=== PATIENT | female | born 1930 | race Caucasian/White ===

== ENCOUNTER 2017-05-25 10:37 | Inpatient (IN) | payer MEDICARE ==
[~2017-05-25] VITALS: Ht 160 cm; Wt 71.0 kg
--- OUTSIDE RECORDS SUMMARY | 2017-05-25 10:40 | XMS REPORT | Clinical Summary ---
Author Author [facility] Organization [facility] Address Unknown Phone Unavailable Care Team Providers Care Produce Sorter Name Role Phone Sommer Jesus MD PCP Allergies Active Allergy Reactions Severity Noted Date Comments Cephalexin 08/14/2015 Cramp,diarrhea Codeine Other (See Comments) 08/14/2015 nausea Iron Diarrhea High 05/24/2016 Intolerant of oral iron but tolerates IV ferrlecit Isosorbide Mononitrate Other (See Comments) 08/14/2015 Slow heart Penicillins Hives 08/14/2015 Sulfanilamide Hives 08/14/2015 Current Medications Prescription Sig. Disp. Refills Start End Date Status Date losartan (COZAAR) 100 MG Take 100 mg by mouth once 5 10/29/19 Active tablet daily. 16 SPIRIVA WITH HANDIHALER INHALE 1 CAPSULE VIA 3 09/03/19 Active 18 mcg per inhalation HANDIHALER ONCE DAILY AT 16 capsule THE SAME TIME EVERY DAY VITAMIN D2 50,000 unit Take 1 capsule by mouth 0 10/12/19 Active capsule every 30 (thirty) days. 16 ADVAIR DISKUS 250-50 INHALE 1 DOSE BY MOUTH 0 10/19/19 Active mcg/dose DISKUS TWICE DAILY. RINSE MOUTH 16 AFTER USE pantoprazole (PROTONIX) Take 40 mg by mouth daily 5 09/25/19 Active 40 MG EC tablet as needed. 16 atorvastatin (LIPITOR) 20 Take 1 tablet by mouth 11/06/19 Active MG tablet daily. 16 ascorbic acid, vitamin C, Take 500 mg by mouth Active (VITAMIN C) 500 MG tablet daily. diphenhydramine-acetamino Take 1 tablet by mouth Active phen (TYLENOL PM EXTRA nightly. STRENGTH) 25-500 mg tablet BD INSULIN SYRINGE USE DIRECTED 100 each 2 04/17/20 Active ULTRA-FINE 0.5 mL 31 17 gauge x 5/16 syringe metoprolol succinate XL TAKE 1 TABLET (50 MG 90 tablet 2 09/15/19 Active (TOPROL-XL) 50 mg 24 hr TOTAL) BY MOUTH ONCE 17 tablet DAILY. ONETOUCH ULTRA TEST strip Testing blood sugar twice 200 strip 0 Active test stripsIndications: daily 17 Diabetes mellitus with insulin therapy piroxicam (FELDENE) 10 MG Take 1 capsule (10 mg 30 capsule 11 12/23/19 Active capsuleIndications: total) by mouth daily. 17 18 Osteoarthritis of left glenohumeral joint insulin 70/30 NPH and Inject 5 Units under the 10 mL 12 03/27/19 Active regular human (HumuLIN skin 2 (two) times a day 18 70/30) 100 unit/mL before meals for 30 days. (70-30) injection amLODIPine (NORVASC) 5 MG Take 1 tablet (5 mg 30 tablet 11 10/24/19 10/28/19 Discontin tablet total) by mouth daily. 16 17 ued furosemide (LASIX) 40 MG Take 40 mg by mouth 2 2 09/06/19 03/28/19 Discontin tablet (two) times a day. 16 18 ued BD INSULIN SYRINGE See Admin Instructions. 2 09/11/19 06/19/19 Discontin ULTRA-FINE 0.5 mL 31 16 17 ued gauge x 5/16 syringe ONETOUCH ULTRA TEST strip TEST BLOOD SUGAR TWICE A 2 08/30/19 Discontin test strips DAY 16 17 ued diltiazem XR (DILACOR XR) Take 240 mg by mouth once 5 11/01/19 Discontin 240 MG 24 hr capsule daily. 16 18 ued metoprolol succinate XL Take 1 tablet (50 mg 90 tablet 2 12/24/19 Discontin (TOPROL-XL) 50 MG 24 hr total) by mouth once 16 17 ued tablet daily. HUMULIN 70/30 100 unit/mL Inject 35 Units under the 10 mL 3 04/07/19 05/30/19 Discontin (70-30) injection skin 2 (two) times a day. 17 17 ued clonIDINE (CATAPRES) 0.1 TAKE 1 TABLET BY MOUTH 30 tablet 3 04/16/19 08/09/19 Discontin MG tablet EVERY DAY 17 17 ued potassium chloride Take 20 mEq by mouth 03/28/19 Discontin (K-DUR) 20 MEQ CR tablet every morning. 18 ued HUMULIN 70/30 100 unit/mL INJECT 35 UNITS UNDER THE 10 mL 3 05/30/19 08/08/19 Discontin (70-30) injection SKIN 2 (TWO) TIMES A DAY. 17 17 ued BD INSULIN SYRINGE USE DIRECTED 100 each 2 06/19/19 06/22/19 Discontin ULTRA-FINE 0.5 mL 31 17 17 ued gauge x 5/16 syringe HUMULIN 70/30 100 unit/mL INJECT 35 UNITS UNDER THE 10 mL 3 08/08/19 10/14/19 Discontin (70-30) injection SKIN 2 (TWO) TIMES A DAY. 17 17 ued clonIDINE (CATAPRES) 0.1 TAKE 1 TABLET BY MOUTH 30 tablet 3 08/09/19 11/24/19 Discontin MG tablet EVERY DAY 17 17 ued ONETOUCH ULTRA TEST strip TEST BLOOD SUGAR TWICE A 200 strip 2 11/14/19 Discontin test strips DAY 17 17 ued HUMULIN 70/30 100 unit/mL INJECT 35 UNITS UNDER THE 10 mL 3 10/14/19 03/28/19 Discontin (70-30) injection SKIN 2 (TWO) TIMES A DAY. 17 18 ued amLODIPine (NORVASC) 5 mg TAKE 1 TABLET (5 MG 30 tablet 5 10/28/19 03/28/19 Discontin tablet TOTAL) BY MOUTH DAILY. 17 18 ued clonIDINE (CATAPRES) 0.1 TAKE 1 TABLET BY MOUTH 30 tablet 3 11/24/19 03/28/19 Discontin MG tablet EVERY DAY 17 18 ued clonIDINE (CATAPRES) 0.1 Take 1 tablet (0.1 mg 60 tablet 0 03/27/19 04/26/19 MG tablet total) by mouth 2 (two) 18 18 times a day for 30 days. diltiazem CD (CardIZEM Take 1 capsule (240 mg 30 capsule 0 03/28/19 04/27/19 CD) 240 MG 24 hr capsule total) by mouth daily for 18 18 30 days. furosemide (LASIX) 20 mg Take 1 tablet (20 mg 30 tablet 0 03/28/19 04/27/19 tablet total) by mouth daily for 18 18 30 days. levoFLOXacin (LEVAQUIN) Take 1 tablet (500 mg 03/28/19 04/02/19 500 MG tablet total) by mouth daily for 18 18 5 days. Active Problems Problem Noted Date Subdural hematoma 03/25/2017 SDH (subdural hematoma) 03/22/2017 Osteoarthritis of left glenohumeral joint 07/09/2016 Symptomatic anemia 05/08/2016 Left shoulder pain 05/07/2016 Overview: Had tendon repair in the past. Started having chronic left shoulder pain for months which prohibit lifting her arm above horizontal level. Medicare annual wellness visit, subsequent 11/07/2015 Overview: Living independently with however he is currently in SNF after stroke. Has daily caregiver for an hour each day and gets housekeeping service weekly through [employer], [employer] provides one meal a day. She uses wheelchair to come into office and longer outings but uses walker at home. Chronic diastolic heart failure 11/07/2015 Overview: On furosemide 20 mg bid as well as the metoprolol and lisinopril. Had recent echo showing moderate LVH with preserved EF, marked enlargement of left atrium and PA pressure of 41mmHg. Sick sinus syndrome 11/07/2015 Overview: Has had pacemaker since for bradyarythmia and atrial fibrillation. Had dual lead pacemaker placed 2008 and had recent pacemaker evaluation through Dr. Mcbride 03/31/16. Vitamin D deficiency 11/07/2015 Overview: Was placed on Vitamin D 50,000 units for period and now on monthly through Dr. Jesus DM (diabetes mellitus) 08/14/2015 Overview: On Humulin 70/30 35 units bid however is a little variable in when gives insulin in relation to meals. Has been taking the evening dose after the evening meal to try and get better control of AM sugars. BS runs 150-220 frequently, which is higher vs her baseline per patient. Hyperlipidemia 08/14/2015 Overview: On atorvastatin 20mg day without muscle Sx Hypercalcemia 08/14/2015 Anemia 08/14/2015 Anemia due to chronic blood loss 08/14/2015 Overview: Has had recurrent episodes of deveopment of severe anemia 2/2 occult blood loss. Had EGD and colonoscopy when admitted [facility] last summer and had recurrent admission in July 2015 requiring transfusion. She did not have overt GI bleeding since last visit. Essential hypertension 08/14/2015 Overview: On losatan, furosemide, diltiazem, amlodipine and metoprolol with good control of blood pressures. COPD (chronic obstructive pulmonary disease) 08/14/2015 Overview: Followed by Dr. Jesus and is on both Advair and Spririva. On chronic low flow home O2 at 2-3 liters/min. No recent change in degree of dyspnea or cough. Has chronic pedal edema. Parotitis 08/14/2015 Gastrointestinal hemorrhage 08/14/2015 Chronic kidney disease, stage 3 08/14/2015 Dyspnea 08/14/2015 Encounters Date Type Specialty Care Team Description 04/07/2017 Patient Quality Myriam Pickering, RN Outreach 03/27/2017 Documentation Quality Elijah Copeland 03/22/2017 [facility] Neurosurgery Gnaesh Valero MD - Encounter Trenton Stephen MD 03/28/2017 Madhu Stephen MD 03/22/2017 Emergency Emergency Medicine Lowell Orozco MD Subdural hematoma (Primary Dx) 03/05/2017 Ancillary Procedural Cardiology Darrell Mcbride MD Heart failure, Orders unspecified heart failure chronicity, unspecified heart failure type; Sick sinus syndrome 02/27/2017 Hospital Procedural Cardiology Darrell Mcbride MD Heart failure, Encounter unspecified heart failure chronicity, unspecified heart failure type; Sick sinus syndrome 01/27/2017 Refill Internal Medicine Christopher Jimenez III, MD Diabetes mellitus with insulin therapy 01/23/2017 Infusion Oncology Darshan Corrales MD Pre-op testing (Primary Dx); Symptomatic anemia 12/22/2016 Office Visit Orthopedic Surgery Ze Jones MD Osteoarthritis of left glenohumeral joint (Primary Dx) 11/23/2016 Refill Internal Medicine Christopher Jimenez III, MD 11/20/2016 Infusion Oncology Darshan Corrales MD Symptomatic anemia (Primary Dx) 11/13/2016 Refill Internal Medicine Nalini Wong LVN Diabetes mellitus with insulin therapy (Primary Dx) 10/31/2016 Hospital Procedural Cardiology Darrell Mcbride MD SSS (sick sinus syndrome) Encounter 10/31/2016 Ancillary Procedural Cardiology Darrell Mcbride MD SSS ( sick sinus syndrome) Orders 10/27/2016 Refill Internal Medicine Christopher Jimenez III, MD 10/13/2016 Refill Internal Christopher Figueroa III, MD 09/25/2016 Refill Internal Christopher Figueroa III, MD 09/13/2016 Refill Internal Christophre Figueroa III, MD 08/08/2016 [facility] Internal Christopher Figueroa III, MD 08/07/2016 Refill Internal Christopher Figueroa III, MD 07/09/2016 Office Visit Orthopedic Surgery Ze Jones MD Left shoulder pain, unspecified chronicity (Primary Dx); Osteoarthritis of left glenohumeral joint 07/02/2016 Ancillary Procedural Cardiology Darrell Mcbride MD SSS ( sick sinus syndrome) Orders 06/30/2016 Hospital Procedural Cardiology Darrell Mcbride MD SSS (sick sinus syndrome) Encounter 06/21/2016 Refill Internal Christopher Figueroa III, MD 06/18/2016 Refill Internal Christopher Figueroa III, MD 06/06/2016 Telephone Quality Larissa Carr RN 05/29/2016 Refill Internal Christopher Figueroa III, MD after 05/24/2016 Family History Medical History Relation Name Comments Aortic aneurysm Brother Appendicitis Father Hypertension Father Diabetes Mother Heart failure Mother Hypertension Mother Relation Name Status Comments Brother Father Mother Social History Tobacco Use Types Packs/Day Years Used Date Never Smoker Smokeless Tobacco: Never Used Comments: smoked very little for a month in her 20s Alcohol Use Drinks/Week oz/Week Comments No Sex Assigned at Date Recorded Not on file Last Filed Vital Signs Vital Sign Reading Time Taken Blood Pressure 134/66 03/28/2017 12:33 PM RAIL CAR [employer]/SANDB[employer] Pulse 62 03/28/2017 1:06 PM RAIL CAR [employer]SANDB[employer] Temperature 36.6 C (97.8 F) 03/28/2017 12:33 PM RAIL CAR PA[employer]/SANDBLASTER Respiratory Rate 16 03/28/2017 1:06 PM RAIL CAR [employer]SANDB[employer]ER Oxygen Saturation 96% 03/28/2017 1:00 PM RAIL CAR PA[employer]SANDBLASTER Inhaled Oxygen - - Concentration Weight 77.6 kg (171 lb) 03/22/2017 10:34 AM RAIL CAR PAINTER/SANDBLASTER Height 167.6 cm (5' 6") 03/22/2017 10:34 AM RAIL CAR PA[employer]/SANDBLASTER Body Mass Index 27.6 03/22/2017 10:34 AM RAIL CAR PA[employer]/SANDBLASTER Plan of Treatment Health Maintenance Due Date Last Done Comments FOOT EXAM 1941 OPHTHALMOLOGY EXAM 1941 ZOSTER VACCINE 1991 PNEUMOCOCCAL 02/04/1996 POLYSACCHARIDE VACCINE AGE 65 AND OVER PNEUMOCOCCAL-13 02/04/1996 INFLUENZA VACCINE 10/07/2016 Procedures Procedure Name Priority Date/Time Associated Diagnosis Comments CV PACEMAKER PROGRAMMING Routine 03/24/2017 DL 10:40 AM RAIL CAR PAINTER/SANDBLASTER ECHOCARDIOGRAM 2D Routine 03/23/2017 Results for this COMPLETE W MMODE SPECTRAL 2:43 PM RAIL CAR PAINTER/SANDBLASTER procedure are in the COLOR DOPPLER (62337) results section. MD CRITICAL CARE, E/M Routine 03/22/2017 Results for this 30-74 MINUTES 7:53 PM RAIL CAR PAINTER/SANDBLASTER procedure are in the results section. CV PACEMAKER DEFIB REMOTE Routine 03/05/2017 Heart failure, TECH SERVICE 9:53 AM RAIL CAR PAINTER/SANDBLASTER unspecified heart failure chronicity, unspecified heart failure type Sick sinus syndrome MD ARTHROCENTESIS Routine 12/22/2016 Osteoarthritis of left Results for this ASPIR&/INJ MAJOR JT/BURSA 2:49 PM CDT glenohumeral joint procedure are in the W/O US results section. CV PACEMAKER DEFIB REMOTE Routine 10/31/2016 SSS (sick sinus syndrome) TECH SERVICE 1:04 PM CDT MD ARTHROCENTESIS Routine 07/09/2016 Left shoulder pain, Results for this ASPIR&/INJ MAJOR JT/BURSA 1:59 PM CDT unspecified chronicity procedure are in the W/O US Osteoarthritis of left results section. glenohumeral joint CV PACEMAKER DEFIB REMOTE Routine 07/02/2016 SSS (sick sinus syndrome) TECH SERVICE 2:36 PM CDT after 05/24/2016 Results * POC glucose (03/28/2017 12:36 PM) Only the most recent of 27 results within the time period is included. Component Value Ref Range POC glucose 123 (H) 65 - 99 mg/dL Comment: [facility] Notified RN Meter ID: [id number] Circular Knitter Helper: Harry Ochoa Specimen Performing Laboratory [facility] DEPARTMENT OF PATHOLOGY AND GENOMIC MEDICINE [address] [place] [phone] * Creatine kinase, total (CPK) (03/26/2017 4:20 AM) Component Value Ref Range Creatine kinase 98 26 - 192 U/L Specimen Performing Laboratory Plasma specimen [facility] DEPARTMENT OF PATHOLOGY AND GENOMIC MEDICINE [address] [place] [id number] * CT Head Wo Contrast (03/26/2017 1:08 AM) Only the most recent of 4 results within the time period is included. Specimen Performing Laboratory [facility] [address] [place] [address] HEAD WO CONTRAST CLINICAL INDICATION:fu recent right parietal and occipitalsubdural hematoma TECHNIQUE: Routine unenhanced multidetector CT examination of the brain. CT imaging was performed with iterative reconstruction technique and/or automated exposure control to reduce radiation dose. COMPARISON:03/23/2017. FINDINGS: There is similar appearance of the small amount of extra-axial hemorrhage overlying the right parieto-occipital region, which again measures up to a maximum of 5 mm in thickness. No new intracranial hemorrhage is identified. There is no midline shift, acute hydrocephalus, or herniation. There is generalized volume loss. There is periventricular and subcortical white matter hypoattenuation, compatible with chronic microangiopathic changes. There are intracranial vascular calcifications. Aside from cataract surgery, the orbits are normal. The calvarium is intact. The paranasal sinuses and mastoid air cells are clear. IMPRESSION: No significant interval changes when compared to 03/23/2017. There is similar appearance of the small amount of extra-axial hemorrhage overlying the right parieto-occipital region. [facility]-[id number] Procedure Note Interface, Radiology Results Incoming - 03/26/2017 2:00 AM RAIL CAR PAINTER/SANDBLASTER CT HEAD WO CONTRAST CLINICAL INDICATION: fu recent right parietal and occipital subdural hematoma TECHNIQUE: Routine unenhanced multidetector CT examination of the brain. CT imaging was performed with iterative reconstruction technique and/or automated exposure control to reduce radiation dose. COMPARISON: 03/23/2017. FINDINGS: There is similar appearance of the small amount of extra-axial hemorrhage overlying the right parieto-occipital region, which again measures up to a maximum of 5 mm in thickness. No new intracranial hemorrhage is identified. There is no midline shift, acute hydrocephalus, or herniation. There is generalized volume loss. There is periventricular and subcortical white matter hypoattenuation, compatible with chronic microangiopathic changes. There are intracranial vascular calcifications. Aside from cataract surgery, the orbits are normal. The calvarium is intact. The paranasal sinuses and mastoid air cells are clear. IMPRESSION: No significant interval changes when compared to 03/23/2017. There is similar appearance of the small amount of extra-axial hemorrhage overlying the right parieto-occipital region. [facility]-[id number] * XR Chest 1 Vw Portable (03/25/2017 2:45 PM) Only the most recent of 2 results within the time period is included. Specimen Performing Laboratory [facility] [address] [place] [address] Narrative Examination: XR CHEST 1 VW PORTABLE Clinical history: COPD Emphysema Comparison: March 22 Impression: 1. Pulmonary volumes mildly improved. Interval development of mild probably interstitial infiltrates may be congestive or inflammatory. 2. Interval development of hazy opacity within the right base is partially related atelectasis, though some component of confluent infiltrate is suspected. 3. The cardiac silhouette remains moderately enlarged. Multilead cardiac pacemaker stable. There is no acute osseous pathology. 4. Appearance is otherwise similar. [id number] Procedure Note Interface, Radiology Results Incoming - 03/25/2017 3:24 PM RAIL CAR PAINTER/SANDBLASTER Examination: XR CHEST 1 VW PORTABLE Clinical history: COPD Emphysema Comparison: March 22 Impression: 1. Pulmonary volumes mildly improved. Interval development of mild probably interstitial infiltrates may be congestive or inflammatory. 2. Interval development of hazy opacity within the right base is partially related atelectasis, though some component of confluent infiltrate is suspected. 3. The cardiac silhouette remains moderately enlarged. Multilead cardiac pacemaker stable. There is no acute osseous pathology. 4. Appearance is otherwise similar. [facility]-[id number] * Smear review (03/25/2017 6:40 AM) Only the most recent of 3 results within the time period is included. Component Value Ref Range Platelet slide review Audelia adequate Anisocytosis Moderate Schistocytes Occasional Ovalocytes Moderate Specimen Performing Laboratory [facility] DEPARTMENT OF PATHOLOGY AND GENOMIC MEDICINE [address] [place] [address] * CBC with platelet and differential (03/25/2017 6:40 AM) Only the most recent of 3 results within the time period is included. Component Value Ref Range WBC 12.05 (H) 4.50 - 11.00 k/uL RBC 4.52 4.20 - 5.50 m/uL HGB 11.7 (L) 12.0 - 16.0 g/dL HCT 39.0 37.0 - 47.0 % MCV 86.3 82.0 - 100.0 fL MCH 25.9 (L) 27.0 - 34.0 pg MCHC 30.0 (L) 31.0 - 37.0 g/dL RDW - SD 84.3 (H) 37.0 - 55.0 fL MPV 9.9 8.8 - 13.2 fL Platelet count 179 150 - 400 k/uL Nucleated RBC 0.00 /100 WBC Neutrophils 79.8 (H) 39.0 - 69.0 % Lymphocytes 6.5 (L) 25.0 - 45.0 % Monocytes 9.3 0.0 - 10.0 % Eosinophils 3.4 0.0 - 5.0 % Basophils 0.6 0.0 - 1.0 % Immature granulocytes 0.4Comment: "Immature granulocytes" 0.0 - 1.0 % (promyelocytes, myelocytes, metamyelocytes) Specimen Performing Laboratory Blood [facility] DEPARTMENT OF PATHOLOGY AND [address] [id number] * Estimated GFR (03/25/2017 4:00 AM) Only the most recent of 3 results within the time period is included. Component Value Ref Range GFR Non Af Amer 79 mL/min/1.73 m2 GFR Af Amer >90 mL/min/1.73 m2 Comment: Chronic kidney disease: <60 mL/min/1.73m2 Kidney failure: <15 mL/min/1.73m2 The estimated GFR is calculated from the IDMS-traceable Modification of Diet in Renal Disease Equation. The accuracy of the calculation is poor when the creatinine is normal. Calculated values >90 mL/min/1.73m2 are not reported. This equation has not been validated in children (<18 years), women, the elderly (>70 years), or ethnic groups other than Caucasians and Americans. Specimen Performing Laboratory Plasma specimen [facility] DEPARTMENT OF PATHOLOGY AND [facility] MEDICINE [address] [place] [id number] * Basic metabolic panel (03/25/2017 4:00 AM) Only the most recent of 2 results within the time period is included. Component Value Ref Range Sodium 141 135 - 148 mEq/L Potassium 4.9 3.5 - 5.0 mEq/L Chloride 108 98 - 112 mEq/L CO2 25 24 - 31 mEq/L Anion gap 8 7 - 15 mEq/L Comment: Starting from June , anion gap calculation no longer incorporates potassium. Please note the change. BUN 22 8 - 23 mg/dL Creatinine 0.7 0.5 - 0.9 mg/dL Glucose 126 (H) 65 - 99 mg/dL Calcium 9.4 8.8 - 10.2 mg/dL Specimen Performing Laboratory Plasma specimen [facility] DEPARTMENT OF PATHOLOGY AND [address] [id number] * Gram stain (03/24/2017 12:50 PM) Component Value Ref Range Gram stain result Rare WBC's No organisms seen Comment: Specimen Information Specimen Source: Urine Specimen Site: See UA Specimen Performing Laboratory Urine [facility] [place] [address] * Urine culture (03/24/2017 12:50 PM) Component Value Ref Range Urine culture isolate Mixed Gram positive neftaly 10-5 cfu/ml (A) Comment: Specimen Information Specimen Source: Urine Specimen Site: See UA Specimen Performing Laboratory Urine [facility] [place] [address] * Urinalysis screen and microscopy, with reflex to culture (03/24/2017 12:10 PM) Component Value Ref Range Specimen site Catheterized Color, UA Yellow Appearance, UA Clear Specific gravity, UA 1.018 1.001 - 1.035 pH, UA 5.0 5.0 - 8.5 Protein, UA 2+ (A) Negative Glucose, UA Negative Negative Ketones, UA Negative Negative Bilirubin, UA Negative Negative Blood, UA Negative Negative Nitrite, UA Negative Negative Urobilinogen, UA 2.0 (A) <2.0 Leukocyte esterase, UA Negative Negative Epithelial cells, UA 2 /HPF WBC, UA 5 (H) 0 - 4 /HPF RBC, UA None seen 0 - 2 /HPF Bacteria, UA Few None seen Yeast, UA None seen Yeast with pseudohyphae, None seen UA Specimen Performing Laboratory Urine [facility] DEPARTMENT OF PATHOLOGY AND GENOMIC MEDICINE [address] [place] [address] * Cv pacemaker defib or ilr interrogation (03/24/2017 10:40 AM) Specimen Performing Laboratory [facility] [address] [place] [address] * Hemoglobin A1c (03/24/2017 4:40 AM) Only the most recent of 2 results within the time period is included. Component Value Ref Range Hemoglobin A1C 5.6 4.0 - 5.6 % Comment: HbA1c cutoffs for diagnosing diabetes: 4.0% - 5.6%=normal 5.7% - 6.4%=increased risk for diabetes (prediabetes) >=6.5%=diabetes Goals for glycemic control (ADA 2016) < 7.0% Target for non adults with diabetes. More or less stringent targets may be appropriate for individual patients. <7.5% Target for Children and adolescents with type 1 diabetes. Specimen Performing Laboratory [facility] DEPARTMENT OF PATHOLOGY AND GENOMIC MEDICINE [address] [place] [phone] * Ferritin level (03/24/2017 4:00 AM) Component Value Ref Range Ferritin level 240 (H) 13 - 150 ng/mL Specimen Performing Laboratory Plasma specimen [facility] DEPARTMENT OF PATHOLOGY AND GENOMIC MEDICINE [address] [place] [id number] * XR Knee 3 Vw Right (03/23/2017 9:10 PM) Specimen Performing [facility] [address] [place] [id number] Narrative XR KNEE 3 VW RIGHT CLINICAL INDICATION:pain sp fall COMPARISON:None. IMPRESSION: There is no acute fracture or dislocation. There is no knee joint effusion. The bones are demineralized. There is mild osteoarthrosis of the knee, worst in the medial femorotibial compartment. [facility]-[id number] Procedure Note Interface, Radiology Results Incoming - 03/23/2017 9:34 PM RAIL CAR PAINTER/SANDBLASTER XR KNEE 3 VW RIGHT CLINICAL INDICATION: pain sp fall COMPARISON: None. IMPRESSION: There is no acute fracture or dislocation. There is no knee joint effusion. The bones are demineralized. There is mild osteoarthrosis of the knee, worst in the medial femorotibial compartment. [facility]-[id number] * XR Knee 3 Vw Left (03/23/2017 9:10 PM) Specimen Performing Laboratory [address] [address] Narrative XR KNEE 3 VW LEFT CLINICAL INDICATION:pain sp fall COMPARISON:None. IMPRESSION: There is no acute fracture or dislocation. There is no knee joint effusion. The bones are demineralized. There is moderate osteoarthrosis of the knee, worst in the medial femorotibial compartment. [facility]-[id number] Procedure Note Interface, Radiology Results Incoming - 03/23/2017 9:33 PM RAIL CAR PAINTER/SANDBLASTER XR KNEE 3 VW LEFT CLINICAL INDICATION: pain sp fall COMPARISON: None. IMPRESSION: There is no acute fracture or dislocation. There is no knee joint effusion. The bones are demineralized. There is moderate osteoarthrosis of the knee, worst in the medial femorotibial compartment. [facility]-[id number] * Echocardiogram complete w contrast and 3D if needed (03/23/2017 2:43 PM) Specimen Performing Laboratory [facility] [address] [id number] Narrative Echocardiography Report [address] [address], [place] [address] Pat.Name:Laureano HOLLEY.ID:[id number] .Date: 03/23/2017 Refer.MD:GANESH VALERO MD Exam Time: 2:09:00 PMStudy Type:Routine Echo Height:64inWeight:171lb BSA: 1.83 m2 DOBAge:1929,87Y Sex: FEMALEBP: 156/76 Sonogrphr: Hyacinth Garcia RDCS, RVSPat. Stat.:Inpatient Study Status:Final Echo Event ID:[id number] Order ID:[id number] Reason for Study:Syncope without cardiac evidence History / Clinical:Diabetes, Hyperlipidemia, Hypertension, Shortness of Breath, Anemia, Congestive Heart Failure, Coronary Artery Disease, sdh Procedures:2D Echo, Colorflow Doppler Race:White SUMMARY: LV EF is normal. RV systolic function is normal. Diastolic dysfunction Grade I (Mild): Impaired relaxation with normal LV filling pressures. FINDINGS: LV: LV size is upper limits of normal. There is severe concentricLV hypertrophy. LV EF is normal. Overall wall motionis normal. Estimated EF is 55-59%. Septal motion is paradoxicalsecondary to LBBB or conduction abnormality. RV: RV size is normal. A pacemaker wire is seen in the RV. RV systolicfunction is normal. RV wall motion is normal. LA: LA size is normal. RA: RA volume is normal. A pacemaker wire is seen. AO: Aortic root diameter is normal. HELEN: Trace posterior pericardial effusion. There is an anterior spaceconsistent with a prominent epicardial fat pad. AV: Mild thickening and calcification of AV leaflets. MV: No structural MV abnormalities noted. Mild mitral regurgitation. PV: Pulmonic valve not well seen. TV: No structural TV abnormalities noted. Mild tricuspid regurgitation Mayers: Diastolic dysfunction Grade I (Mild): Impaired relaxation withnormal LV filling pressures. Other:Estimated PA systolic pressure is 38 mmHg, assuming a mean RAPof 5 mmHg. MEASUREMENTS: 2D Parasternal Long Goltry Ao An2.2 cmLVPWd 1.7 cm LVOT 2 cmLA Ds 4.4 cm LVIDd5.2 cmIndex 2.8 cm/m Ao Rtd 3.4 cm Index1.9 cm/m LVIDs3.7 cmLV Mass 390.4 g(87-129) LV%fs 28.9 % LVM Index 213.3 g/m2 IVSd 1.6 cmRWT 0.7 LA Sng Plane LA Area 17.9 cm2(8.8-23.4) LA Vol39.2 ml Index21.4 ml/m LA LngAx 7 cm DOPPLER LVOT For Flow LVOT Area3.1 cm2 LVOT SV 67.8 ml AXBVmkYpk404.9 cm/sHR 59.9 bpm LVOTpkPG 6.7 mmHgLVOT CO 4.1 l/min LVOTmnPG 3.5 mmHgLVOT CI 2.2 l/m/m2 LVOT TVI21.6 cm Signed 03/23/2017 07:23 PM Koki Viveros M.D. Procedure Note Interface, Radiology Results In - 03/23/2017 7:24 PM RAIL CAR PAINTER/SANDBLASTER Echocardiography Report [address] [address], [place] [address] [facility].Name: ESTRELLA HOLLEY Ragini.ID: [id number] .Date: 03/23/2017 Refer.MD: GANESH VALERO MD Exam Time: 2:09:00 PM Study Type:Routine Echo Height: 64in Weight: 171lb BSA: 1.83 m2 Age: 12 1930,87Y Sex: FEMALE BP: 156/76 Sonogrphr: Hyacinth Garcia RDCS, RVSPat. Stat.:Inpatient Study Status:Final Echo Event ID:[id number] Order ID: [id number] Reason for Study:Syncope without cardiac evidence History / Clinical:Diabetes, Hyperlipidemia, Hypertension, Shortness of Breath, Anemia, Congestive Heart Failure, Coronary Artery Disease, sdh Procedures:2D Echo, Colorflow Doppler Race: White SUMMARY: LV EF is normal. RV systolic function is normal. Diastolic dysfunction Grade I (Mild): Impaired relaxation with normal LV filling pressures. FINDINGS: LV: LV size is upper limits of normal. There is severe concentric LV hypertrophy. LV EF is normal. Overall wall motion is normal. Estimated EF is 55-59%. Septal motion is paradoxical secondary to LBBB or conduction abnormality. RV: RV size is normal. A pacemaker wire is seen in the RV. RV systolic function is normal. RV wall motion is normal. LA: LA size is normal. RA: RA volume is normal. A pacemaker wire is seen. AO: Aortic root diameter is normal. HELEN: Trace posterior pericardial effusion. There is an anterior space consistent with a prominent epicardial fat pad. AV: Mild thickening and calcification of AV leaflets. MV: No structural MV abnormalities noted. Mild mitral regurgitation. PV: Pulmonic valve not well seen. TV: No structural TV abnormalities noted. Mild tricuspid regurgitation Mayers: Diastolic dysfunction Grade I (Mild): Impaired relaxation with normal LV filling pressures. Other: Estimated PA systolic pressure is 38 mmHg, assuming a mean RAP of 5 mmHg. MEASUREMENTS: 2D Parasternal Long Goltry Ao An 2.2 cm LVPWd 1.7 cm LVOT 2 cm LA Ds 4.4 cm LVIDd 5.2 cm Index 2.8 cm/m Ao Rtd 3.4 cm Index 1.9 cm/m LVIDs 3.7 cm LV Mass 390.4 g (87-129) LV%fs 28.9 % LVM Index 213.3 g/m2 IVSd 1.6 cm RWT 0.7 LA Sng Plane LA Area 17.9 cm2 (8.8-23.4) LA Vol 39.2 ml Index 21.4 ml/m LA LngAx 7 cm DOPPLER LVOT For Flow LVOT Area 3.1 cm2 LVOT SV 67.8 ml LVOTpkVel 128.9 cm/s HR 59.9 bpm LVOTpkPG 6.7 mmHg LVOT CO 4.1 l/min LVOTmnPG 3.5 mmHg LVOT CI 2.2 l/m/m2 LVOT TVI 21.6 cm Signed 03/23/2017 07:23 PM Koki Viveros M.D. * CT Cervical Spine Wo Contrast (03/23/2017 1:52 PM) Specimen Performing Laboratory [address] [address] Narrative EXAMINATION: CT CERVICAL SPINE WO CONTRAST CLINICAL HISTORY: pain COMPARISON:None TECHNIQUE: Axial noncontrast enhanced images of the cervical spine were obtained with coronal and sagittal reconstructed algorithms. CT imaging was performed with iterative reconstruction techniques and/or automated exposure control to reduce radiation dose. FINDINGS: No fracture or acute subluxation is identified. The paraspinous soft tissues are unremarkable. Evaluation the canal contents is limited by the absence of intrathecal contrast. C2-3: Mild loss of disc height. Small central disc protrusion with a minimal annular calcification. Mild left facet arthrosis. C3-4: Moderate loss of disc height. 2.6 mm grade 1 anterolisthesis. Minimal disc bulge. Moderate right facet arthrosis. Mild right foraminal narrowing. C4-5: Moderate loss of disc height. Mild left facet arthrosis. Minimal disc bulge. Mild bilateral foraminal stenosis, most pronounced on the left. C5-6: Moderate spondylosis. Uncovertebral hypertrophy on the right. Minimal disc bulge. Moderate to severe right and mild left foraminal stenosis. C6-7: Mild spondylosis. Grade 1 anterolisthesis. C7-T1: Minimal degenerative changes. Atherosclerotic calcifications are present within the carotid bifurcations and carotid bulbs. There is likely stenosis in the left carotid bulb. No incidental thyroid lesion is identified. IMPRESSION: No acute abnormality of the cervical spine is identified. 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 [id number] Procedure Note Hm Interface, Radiology Results Incoming - 03/23/2017 2:08 PM RAIL CAR PAINTER/SANDBLASTER EXAMINATION: CT CERVICAL SPINE WO CONTRAST CLINICAL HISTORY: pain COMPARISON: None TECHNIQUE: Axial noncontrast enhanced images of the cervical spine were obtained with coronal and sagittal reconstructed algorithms. CT imaging was performed with iterative reconstruction techniques and/or automated exposure control to reduce radiation dose. FINDINGS: No fracture or acute subluxation is identified. The paraspinous soft tissues are unremarkable. Evaluation the canal contents is limited by the absence of intrathecal contrast. C2-3: Mild loss of disc height. Small central disc protrusion with a minimal annular calcification. Mild left facet arthrosis. C3-4: Moderate loss of disc height. 2.6 mm grade 1 anterolisthesis. Minimal disc bulge. Moderate right facet arthrosis. Mild right foraminal narrowing. C4-5: Moderate loss of disc height. Mild left facet arthrosis. Minimal disc bulge. Mild bilateral foraminal stenosis, most pronounced on the left. C5-6: Moderate spondylosis. Uncovertebral hypertrophy on the right. Minimal disc bulge. Moderate to severe right and mild left foraminal stenosis. C6-7: Mild spondylosis. Grade 1 anterolisthesis. C7-T1: Minimal degenerative changes. Atherosclerotic calcifications are present within the carotid bifurcations and carotid bulbs. There is likely stenosis in the left carotid bulb. No incidental thyroid lesion is identified. IMPRESSION: No acute abnormality of the cervical spine is identified. 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 [id number] * Pv carotid duplex (03/23/2017 10:40 AM) Specimen Performing Laboratory [facility] [address] Vascular Ultrasound Laboratory Carotid Artery Duplex Report [address] [facility] [address], [place] [address] For quality control chemist purposes, the categorization of the degree of the stenosis of this exam is based on criteria described in the IAC carotid stenosis grading white paper( www.intersocietal.org/Vascular) and Mike Holt, Javier Perera, et al. Carotid artery stenosis: youngblood-scale and Doppler US diagnosis--Society of Radiologists in Ultrasound Consensus Conference. Radiology. 2003 Nov; 229(2):340-6. Pat.Name:Laureano HOLLEY.ID:[id number] .Date: 03/23/2017 Refer.MD:NICOLASA AYALA MD Exam Time: 10:14:00 AM Study Type:Carotid DOBAge:1930,87YSex: FEMALE Sonogrphr: Porfirio Gan. Stat.:Inpatient Room:[facility] TapeVol: [place], CPT - 4: 301[address] Echo Event ID:[id number] Order ID:[id number] Reason for Study:An episode of syncope and fall on 03/21/2017.History of subdural hematoma, diabetes, hypertension, anemia and CKD stage 3. Race:White SUMMARY: PHYSICAL ASSESSMENT BloodPulsesCarotid Pressure Carotid TemporalBruit Right ___ ++0 Left 153/65 ++0 CAROTID ARTERY SCAN RIGHT:There is smooth intimal lining in the common carotid artery. There is hard and calcified plaque in the bulb extending to the ostium of the external carotid artery. There is hard and calcified plaque in the proximal internal carotid artery. Colorflow is normal. LEFT: There is smooth intimal lining in the common carotid artery. There is hard and calcified plaque in the bulb extending to the proximal internal carotid artery. The external carotid artery is clear. Colorflow is normal. PRELIMINARY FINDINGS 1. <50% stenosis of the bulb and internal carotid artery, bilaterally. 2. <50% stenosis of the right external carotid artery. PHYSICIAN INTERPRETATION 1.Bilateral carotid artery examination demonstrates plaque in the bulbs and internal carotid arteries without hemodynamically significant stenosis. (<50%) Carotid Findings:RightLeft Verteb.Flw Antegrade Antegrade Subclavian Triphasic Triphasic MEASUREMENTS: DOPPLER Left CCA Dist CCA Dist PSV59.8 cm/sCCA Dist EDV14.1 cm/s Left CCA Mid CCA Mid PSV 73.3 cm/sCCA Mid EDV 9.97 cm/s Left CCA Prox CCA Prox PSV88.5 cm/sCCA Prox EDV11.7 cm/s Left ICA Dist ICA Dist PSV76.4 cm/Isis Dist EDV15.9 cm/s Left ICA Mid ICA Mid PSV 72.7 cm/Isis Mid EDV 20.8 cm/s Left ICA Prox ICA Prox PSV88.5 cm/Isis Prox EDV22.9 cm/s Left ECA Prox ECA Prox PSV80.4 cm/sECA Prox EDV5.87 cm/s Left Vertebral Vertebral PSV 48.7 cm/sVertebral EDV 9.97 cm/s Right CCA Dist CCA Dist PSV56.9 cm/sCCA Dist EDV12.9 cm/s Right CCA Mid CCA Mid PSV 64 cm/sCCA Mid EDV 8.91 cm/ s Right CCA Prox CCA Prox PSV66.8 cm/sCCA Prox EDV9.97 cm/s Right ICA Dist ICA Dist PSV58.3 cm/Isis Dist EDV13.4 cm/s Right ICA Mid ICA Mid PSV 53.4 cm/Isis Mid EDV 14.7 cm/s Right ICA Prox ICA Prox PSV52 cm/Isis Prox EDV10 cm/s Right ECA Prox ECA Prox PSV89.1 cm/sECA Prox EDV8.91 cm/s Right Vertebral Vertebral PSV 72.7 cm/sVertebral EDV 11.1 cm/s Right ICA/CCA Ratio ICA/CCA PSV0.812 Left ICA/CCA Ratio ICA/CCA PSV 1.21 Signed 03/23/2017 12:26 PM Nicolasa White MD Procedure Note Interface, Radiology Results In - 03/23/2017 12:27 PM [facility] Vascular Ultrasound Laboratory Carotid Artery Duplex Report [address] [place] [address] For quality control chemist purposes, the categorization of the degree of the stenosis of this exam is based on criteria described in the IAC carotid stenosis grading white paper( www.intersocietal.org/Vascular) and Mike Holt, Javier Perera, et al. Carotid artery stenosis: youngblood-scale and Doppler US diagnosis--Society of Radiologists in Ultrasound Consensus Conference. Radiology. 2003 Jan; 229(2):340-6. Pat.Name: ESTRELLA HOLLEY Ragini.ID: [id number] .Date: 03/23/2017 Refer.MD: NICOLASA AYALA MD Exam Time: 10:14:00 AM Study Type:Carotid Age: 12 1930,87Y Sex: FEMALE Sonogrphr: Lynn Stout RVT Pat. Stat.:Inpatient Room: [facility] Tape Vol: [place], CPT - 4: [address] Echo Event ID:[id number] Order ID: [id number] Reason for Study:An episode of syncope and fall on 03/21/2017.History of subdural hematoma, diabetes, hypertension, anemia and CKD stage 3. Race: White SUMMARY: PHYSICAL ASSESSMENT Blood Pulses Carotid Pressure Carotid Temporal Bruit Right ___ + + 0 Left 153/65 + + 0 CAROTID ARTERY SCAN RIGHT: There is smooth intimal lining in the common carotid artery. There is hard and calcified plaque in the bulb extending to the ostium of the external carotid artery. There is hard and calcified plaque in the proximal internal carotid artery. Colorflow is normal. LEFT: There is smooth intimal lining in the common carotid artery. There is hard and calcified plaque in the bulb extending to the proximal internal carotid artery. The external carotid artery is clear. Colorflow is normal. PRELIMINARY FINDINGS 1. <50% stenosis of the bulb and internal carotid artery, bilaterally. 2. <50% stenosis of the right external carotid artery. PHYSICIAN INTERPRETATION 1. Bilateral carotid artery examination demonstrates plaque in the bulbs and internal carotid arteries without hemodynamically significant stenosis. (<50%) Carotid Findings: Right Left Verteb.Flw Antegrade Antegrade Subclavian Triphasic Triphasic MEASUREMENTS: DOPPLER Left CCA Dist CCA Dist PSV 59.8 cm/s CCA Dist EDV 14.1 cm/s Left CCA Mid CCA Mid PSV 73.3 cm/s CCA Mid EDV 9.97 cm/s Left CCA Prox CCA Prox PSV 88.5 cm/s CCA Prox EDV 11.7 cm/s Left ICA Dist ICA Dist PSV 76.4 cm/s ICA Dist EDV 15.9 cm/s Left ICA Mid ICA Mid PSV 72.7 cm/s ICA Mid EDV 20.8 cm/s Left ICA Prox ICA Prox PSV 88.5 cm/s ICA Prox EDV 22.9 cm/s Left ECA Prox ECA Prox PSV 80.4 cm/s ECA Prox EDV 5.87 cm/s Left Vertebral Vertebral PSV 48.7 cm/s Vertebral EDV 9.97 cm/s Right CCA Dist CCA Dist PSV 56.9 cm/s CCA Dist EDV 12.9 cm/s Right CCA Mid CCA Mid PSV 64 cm/s CCA Mid EDV 8.91 cm/s Right CCA Prox CCA Prox PSV 66.8 cm/s CCA Prox EDV 9.97 cm/s Right ICA Dist ICA Dist PSV 58.3 cm/s ICA Dist EDV 13.4 cm/s Right ICA Mid ICA Mid PSV 53.4 cm/s ICA Mid EDV 14.7 cm/s Right ICA Prox ICA Prox PSV 52 cm/s ICA Prox EDV 10 cm/s Right ECA Prox ECA Prox PSV 89.1 cm/s ECA Prox EDV 8.91 cm/s Right Vertebral Vertebral PSV 72.7 cm/s Vertebral EDV 11.1 cm/s Right ICA/CCA Ratio ICA/CCA PSV 0.812 Left ICA/CCA Ratio ICA/CCA PSV 1.21 Signed 03/23/2017 12:26 PM Nicolasa White MD * Troponin (03/22/2017 11:56 PM) Component Value Ref Range Troponin <0.30 0.00 - 0.30 ng/mL Comment: 0.30 - 1.49 ng/ml May indicate increased risk of acute coronary syndrome. >=1.5 ng/ml Consistent with acute myocardial infarction. The diagnostic value of a single normal or non-diagnostic result is questionable. Serial samples at 2-6 hour intervals are required to rule out acute myocardial injury. Specimen Performing Laboratory Plasma specimen [facility] DEPARTMENT OF PATHOLOGY AND GENOMIC MEDICINE [address] [place], [place] [id number] * Partial thromboplastin time, activated (03/22/2017 11:56 PM) Component Value Ref Range PTT 25.1 23.0 - 36.0 sec Comment: PTT therapeutic range for unfractionated heparin is 61.0-112.0 seconds which corresponds to Anti-Xa 0.3-0.7 U/ml. Specimen Performing Laboratory Blood [facility] DEPARTMENT OF PATHOLOGY AND [facility] MEDICINE [address] [place] [address] * Prothrombin time with INR (03/22/2017 11:56 PM) Component Value Ref Range Prothrombin time 13.8 12.0 - 15.0 sec INR 1.0 Comment: The International Normalized Ratio (INR) is a therapeutic monitoring tool for patients who are stable on oral anticoagulant therapy. An INR of 2.0-3.0 is suggested for deep vein thrombosis/pulmonary embolism. Specimen Performing Laboratory Blood [facility] DEPARTMENT OF PATHOLOGY AND [facility] MEDICINE [address] [place] [address] * Type and screen (03/22/2017 11:56 PM) Only the most recent of 3 results within the time period is included. Component Value Ref Range ABO grouping B Rh type POS Antibody screen (gel) NEG Specimen Performing Laboratory Blood [facility] DEPARTMENT OF PATHOLOGY AND GENOMIC MEDICINE [address] [place] [address] * B natriuretic peptide (03/22/2017 11:56 PM) Component Value Ref Range BNP 184 (H) 0 - 100 pg/mL Specimen Performing Laboratory [facility] DEPARTMENT OF PATHOLOGY AND GENOMIC MEDICINE [address] [place], [place] [address] * Comprehensive metabolic panel (03/22/2017 11:56 PM) Component Value Ref Range Sodium 142 135 - 148 mEq/L Potassium 4.2 3.5 - 5.0 mEq/L Chloride 109 98 - 112 mEq/L CO2 23 (L) 24 - 31 mEq/L Anion gap 10 7 - 15 mEq/L Comment: Starting from June , anion gap calculation no longer incorporates potassium. Please note the change. BUN 29 (H) 8 - 23 mg/dL Creatinine 0.8 0.5 - 0.9 mg/dL Glucose 150 (H) 65 - 99 mg/dL Calcium 9.9 8.8 - 10.2 mg/dL Protein 5.9 (L) 6.3 - 8.3 g/dL Comment: Jenners 4.6-7.0 g/dL 1 week 4.4-7.6 g/dL 7 months-1year 5.1-7.3 g/dL 1-2 years 5.6-7.5 g/dL >3 years 6.0-8.0 g/dL 18-150 6.3-8.3 g/dL Albumin 3.0 (L) 3.5 - 5.0 g/dL A/G ratio 1.0 0.7 - 3.8 Alkaline phosphatase 95 35 - 104 U/L AST 36 (H) 10 - 35 U/L ALT 17 5 - 50 U/L Total bilirubin 0.4 0.0 - 1.2 mg/dL Specimen Performing Laboratory Plasma specimen [facility] DEPARTMENT OF PATHOLOGY AND GENOMIC MEDICINE [address] [place] [id number] * ECG ED Preliminary Interpretation - NOT AN ORDER (03/22/2017 7:53 PM) Mohit Orozco MD 03/22/20177:53 PM ECG ED Preliminary Interpretation - Not an Order Performed by: LOWELL OROZCO Authorized by: LOWELL OROZCO ECG reviewed by ED Physician in the absence of a city editor: yes Rate: ECG rate:92 ECG rate assessment: normal Rhythm: Rhythm: paced Pacing: Type of pacing:Ventricular Ectopy: Ectopy: none QRS: QRS axis:Normal QRS intervals:Normal Conduction: Conduction: normal ST segments: ST segments:Normal T waves: T waves: normal * CRITICAL CARE (03/22/2017 7:53 PM) Mohit Orozco MD 03/22/20177:53 PM Critical Care Performed by: LOWELL OROZCO Authorized by: LOWELL OROZCO Critical care provider statement: Critical care time (minutes):45 Critical care time was exclusive of:Separately billable procedures and treating other patients Critical care was necessary to treat or prevent imminent or life-threatening deterioration of the following conditions:CORN PICKER failure or compromise and trauma Critical care was time spent personally by me on the following activities:Development of treatment plan with patient or surrogate, discussions with primary provider, evaluation of patient's response to treatment, examination of patient, obtaining history from patient or surrogate, re-evaluation of patient's condition, pulse oximetry, ordering and review of radiographic studies, ordering and review of laboratory studies, ordering and performing treatments and interventions and discussions with consultants Kannan 'yes' if you are taking over critical care for this patient from another provider.: no * ECG 12 lead (03/22/2017 6:54 PM) Only the most recent of 2 results within the time period is included. Component Value Ref Range Ventricular rate 80 Atrial rate 80 MD interval 166 QRSD interval 150 QT interval 388 QTC interval 447 P axis 1 51 QRS axis 1 -67 T wave axis 106 EKG impression Atrial-sensed ventricular-paced rhythm-Abnormal ECG-In automated comparison with ECG of 08-MAY-2016 13:45,-Electronic ventricular pacemaker has replaced Wide QRS rhythm- Specimen Performing Laboratory [facility] [address] [place] [address] * Cv pacemaker defib or ilr interrogation (03/05/2017 9:53 AM) Specimen Performing Laboratory [facility] [address] [place] [address] * Transfuse RBC (01/23/2017 4:11 PM) Only the most recent of 6 results within the time period is included. * Prepare RBC, 2 Units (01/22/2017 2:32 PM) Only the most recent of 2 results within the time period is included. Component Value Ref Range Product name Red Blood Cells -1, Leukored Unit number [id number] Product code [id number] Dispense status Transfused Blood expiration date 20170226 Blood type code 7300 Blood type B POSITIVE Product name Red Blood Cells -1, Leukored Unit number [id number] Product code [id number] Dispense status Transfused Blood expiration date 20170226 Blood type code 7300 Blood type B POSITIVE Specimen Performing Laboratory [facility] DEPARTMENT OF PATHOLOGY AND GENOMIC MEDICINE [address] [place] [address] * Large Joint Arthrocentesis (12/22/2016 2:49 PM) Narrative Ze Jones MD 12/22/20162:49 PM Large Joint Arthrocentesis Consent given by: patient Timeout: Immediately prior to procedure a time out was called to verify the correct patient, procedure, equipment, network support analyst and site/side marked as required Supporting Documentation Indications: pain Procedure Details Preparation: Patient was prepped and draped in the usual sterile fashion Ultrasound guided: no Platelet Rich Plasma Used: no PRP UsedLocation: shoulder - L glenohumeral Left side: Needle size (left): 18g. Approach: posterior Left shoulder medications administered: 5 mL ropivacaine 0.5 %; 80 mg methylPREDNISolone acetate 80 mg/mL Patient tolerance: patient tolerated the procedure well with no immediate complications * Cv pacemaker defib or ilr interrogation (10/31/2016 1:04 PM) Specimen Performing Laboratory [facility] [address] [place] [address] * Large Joint Arthrocentesis (07/09/2016 1:59 PM) Narrative Ze Jones MD 07/09/20161:59 PM Large Joint Arthrocentesis Consent given by: patient Timeout: Immediately prior to procedure a time out was called to verify the correct patient, procedure, equipment, network support analyst and site/side marked as required Supporting Documentation Indications: pain Procedure Details Preparation: Patient was prepped and draped in the usual sterile fashion Ultrasound guided: no Platelet Rich Plasma Used: no PRP UsedLocation: shoulder - L glenohumeral Left side: Needle size: 20 G Approach: posterior Left shoulder medications administered: 80 mg methylPREDNISolone acetate 80 mg/mL; 10 mL bupivacaine (PF) 0.25 % (2.5 mg/mL) Patient tolerance: patient tolerated the procedure well with no immediate complications * XR Shoulder 2+ Vw Left (07/09/2016 1:34 PM) Specimen Performing Laboratory [facility] [address] [place] [address] Narrative AP, scapular Y, and axillary views of the left shoulder were obtained demonstrating severe arthrosis of the glenohumeral joint with concentric narrowing noted on the axillary view. Subchondral cysts are present. There is a single metallic anchor seen in the region of the greater tuberosity. Distal clavicle is foreshortened indicating a prior Clare procedure. No fracture or dislocation. * Cv pacemaker defib or ilr interrogation (07/02/2016 2:36 PM) Specimen Performing Laboratory [facility] [address] [place] [address] after 05/24/2016 Insurance Payer Benefit Subscriber ID Type Phone Address Plan / Group MEDICARE MEDICARE xxxxxxxxxx Medicare [place], [place] PART A AND B AARP AARP xxxxxxxxxxx Commercial SUPPLEMENT
[2017-05-25] MEDS ORDERED: HYDROCODONE/APAP 10MG-325MG TAB PO ONE (10:45)
--- NOTE | 2017-05-25 12:17 | Diagnostic Imaging Report ---
PROCEDURE:X-RAY PELVIS, AP VIEW COMPARISON:None. INDICATIONS:FALL, RULE OUT FX FINDINGS:The bones are diffusely demineralized. The patient is mildly rotated. There are mild to moderate degenerative changes of the right hip. The hip appears intact and is properly located. The left hip is intact and normally located. There are mild degenerative changes of the left SI joint. The SI joints are patent. No abnormalities of the pubic symphysis. Mild to moderate degenerative changes of the lumbar spine. There are calcifications throughout the infrarenal aorta.. CONCLUSION: Mild to moderate degenerative changes of the right hip. No fracture or dislocation by x-ray. Dictated by: Xochilt White M.D. on 05/25/2017 at 12:17 Electronically approved by: Xochilt White M.D. on 05/25/2017 at 12:17
--- NOTE | 2017-05-25 12:25 | Diagnostic Imaging Report ---
EXAMINATION: Head and cervical spine CT without contrast. HISTORY: Status post fall, head trauma, head and neck pain COMPARISON: None. TECHNIQUE: Multidetector axial images were obtained without contrast from the foramen magnum to the vertex and through the cervical spine. The images were reconstructed using brain and bone algorithms. Thin section brain images were reformatted into coronal and sagittal planes. HEAD CT FINDINGS: Skull: No lytic or blastic lesions. No fractures. Parenchyma: Moderate confluent periventricular and coronary radiata white matter hypodensities, most likely nonspecific diameter vessel ischemic changes. No mass, hemorrhage or CT evidence of acute vascular insult. Brain volume: Normal for age. Ventricles: No hydrocephalus or displacement. Arteries: No density suggestive of thrombus. Dural sinuses: No abnormal density. Extra-axial spaces: No abnormal density. Foramen magnum: No mass, Chiari malformation, or basilar invagination. Sella: No obvious mass. Paranasal/mastoid sinuses: Hyperpneumatization of sclerosis of the left adrenal right mastoid air cells may reflect sequela from remote inflammatory process. Otherwise no abnormalities. CERVICAL SPINE CT FINDINGS: Alignment:Normal alignment and lordosis. Soft tissues: Normal. Vertebrae: Normal height and density. No acute fracture, infection or neoplasm. Degenerative changes: C1-C2: Normal. C2-C3: Disc osteophyte and approximately 4 mm AP diameter calcified central disc protrusion and facet arthrosis mainly on the left. Moderate spinal canal stenosis. No significant foraminal stenoses. C3-C4: Disc osteophyte complex formation, bilateral uncovertebral and facet arthrosis. Mild spinal canal and moderate foraminal stenoses. Minimal anterolisthesis. C4-C5: Disc osteophyte formation, bilateral uncovertebral and facet arthrosis mainly on the left. Minimal anterolisthesis. Mild spinal canal and bilateral foraminal stenosis mainly on the left. C5-C6: Disc osteophyte complex formation, bilateral uncovertebral and facet hypertrophy mainly on the right. Severe right and mild left foraminal stenosis. C6-C7: Disc osteophyte complex formation, bilateral uncovertebral and facet arthrosis. Grade 1 anterolisthesis. Minimal foraminal narrowing. C7-T1: No spinal canal or foraminal stenosis. IMPRESSION: Head CT: 1. No acute posttraumatic intracranial hemorrhage 2. Moderate chronic microvascular ischemic changes. Cervical spine CT: 1. No acute fractures or dislocations. 2. Chronic degenerative changes as described. Note: Acute post traumatic spinal cord, vascular or ligamentous injury cannot adequately be assessed with CT. Signed by: Dr. eWndy Rivera M.D. on 05/25/2017 12:21 PM
--- NOTE | 2017-05-25 12:34 | Diagnostic Imaging Report ---
PROCEDURE:X-RAY CHEST, ONE VIEW 1200 hrs. COMPARISON:None. 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 Aorta is ectatic with calcifications of the aortic arch. The pulmonary veins are prominent. There is eventration of the right diaphragm with overlying discoid atelectasis. There is mild prominence of the pulmonary interstitium. The lungs are hyperinflated at baseline. No consolidation. Costophrenic angles are sharp. No pneumothorax. The bones are diffusely demineralized with an anchor in the left humeral head. There are moderate degenerative changes of the left shoulder. Visualized ribs appear intact. CONCLUSION: 1. No acute traumatic pathology by x-ray. 2. Cardiomegaly and pulmonary venous hypertension. 3. 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 4. Pulmonary hyperinflation suggestive of COPD. Dictated by: Xochilt White M.D. on 05/25/2017 at 12:34 Electronically approved by: Xochilt White M.D. on 05/25/2017 at 12:34
[2017-05-25 12:59] LABS: BASOPHILS # (AUTO) 0.1 (0.0-0.1); BASOPHILS % 0.6 % (0.0-1.0); EOSINOPHILS # (AUTO) 0.2 (0.0-0.4); EOSINOPHILS % 1.3 % (0.0-6.0); HEMATOCRIT 41.1 % (34.2-44.1); HEMOGLOBIN 13.5 g/dL (12.0-16.0); LYMPHOCYTES # (AUTO) 0.9 (1.0-3.2); LYMPHOCYTES % 5.2 % (18.0-39.1); MEAN CORPUSCULAR HEMOGLOBIN 28.5 pg (28-32); MEAN CORPUSCULAR HGB CONC 32.8 g/dL (31-35); MEAN CORPUSCULAR VOLUME 86.7 fL (81-99); MONOCYTES # (AUTO) 0.9 (0.2-0.8); NEUTROPHILS # (AUTO) 14.9 (2.1-6.9); NEUTROPHILS % 85.3 % (38.7-80.0); PLATELET COUNT 315 x10e3/uL (140-360); RED BLOOD COUNT 4.74 x10e6/uL (3.6-5.1); RED CELL DISTRIBUTION WIDTH 17.2 % (11.7-14.4)
[2017-05-25 13:06] LABS: INR 1.08; PARTIAL THROMBOPLASTIN TIME 21.2 seconds (23.8-35.5); PROTHROMBIN TIME 13.2 seconds (11.9-14.5)
[2017-05-25 13:16] LABS: ALBUMIN 3.1 g/dL (3.5-5.0); ALBUMIN/GLOBULIN RATIO 0.9 (0.8-2.0); ANION GAP 14.8 mmol/L (8-16); CALCIUM 10.9 mg/dL (8.4-10.2); CREATININE, SERUM 1.79 mg/dL (0.57-1.11); POTASSIUM 4.8 mmol/L (3.5-5.1)
[2017-05-25 13:22] LABS: CREATINE KINASE MB 4.6 ng/mL (0-5.0)
[2017-05-25] MEDS ORDERED: MAGNESIUM SULFATE 2GM/50ML 50 ML IV ONE (13:30)
[2017-05-25 15:57] LABS: BILIRUBIN,URINE NEGATIVE (NEGATIVE); CLARITY,URINE HAZY (CLEAR); COLOR,URINE YELLOW (YELLOW); KETONES,URINE NEGATIVE (NEGATIVE); LEUKOCYTE ESTERASE ,URINE 2+ (NEGATIVE); URINE UROBILINOGEN 0.2 mg/dL (0.2 - 1)
[2017-05-25 15:59] LABS: NITRITE,URINE POSITIVE (NEGATIVE); PROTEIN,URINE DIPSTICK 2+ (NEGATIVE)
[2017-05-25 16:09] LABS: BACTERIA,URINE MANY /HPF; EPITHELIAL CELLS,URINE RARE /LPF; WBC,URINE (MAN) >50 /HPF (0-5)
[2017-05-25] MEDS ORDERED: MEROPENEM 1GRAM 1 GM in SODIUM CHLORIDE 0.9% 100 ML 100 ML IV STA (16:22)
[2017-05-25] MEDS ORDERED: MEROPENEM 1 GM VIAL IV ONE (16:50)
[2017-05-25] MEDS ORDERED: ONDANSETRON HCL INJ 2 MG/ML VIAL IV PRN (17:15)
[2017-05-25] MEDS ORDERED: DEXTROSE 50% SYRINGE 50 ML IV PRN (17:15)
--- OUTSIDE RECORDS SUMMARY | 2017-05-25 17:35 | XMS REPORT ---
Author [facility] Address Unknown Phone Unavailable Care Team Providers Care Claims Adjuster Name Role Phone JAGUAR SANABRIA Unavailable Unavailable Problems This patient has no known problems. Allergies, Adverse Reactions, Alerts This patient has no known allergies or adverse reactions. Medications This patient has no known medications. Results Test Description Test Time Test Comments Text Results Atomic Results Result Comments PELVIS AP 1-2 VIEWS [place] [address] Patient Name: ROBYN HOLLEY MR #: [id number] : 1930 Age/Sex: 87/F Req #: [id number] Adm Physician: Ordered by: KERRY VELASQUEZ NP Report #: [id number] Location: ER Room/Bed: Procedure: [id number] DX/PELVIS AP 1-2 VIEWS Exam Date: 05/25/17 Exam Time: 1145 REPORT STATUS: Signed PROCEDURE: X-RAY PELVIS, AP VIEW COMPARISON: None. INDICATIONS: FALL, RULE OUT FX FINDINGS: The bones are diffusely demineralized. The patient is mildly rotated. There are mild to moderate degenerative changes of the right hip. The hip appears intact and is properly located. The left hip is intact and normally located. There are mild degenerative changes of the left SI joint. The SI joints are patent. No abnormalities of the pubic symphysis. Mild to moderate degenerative changes of the lumbar spine. There are calcifications throughout the infrarenal aorta.. CONCLUSION: Mild to moderate degenerative changes of the right hip. No fracture or dislocation by x-ray. Dictated by: Ronald White M.D. on 05/25 at 12:17 Electronically approved by: Ronald White M.D. on 05/25 at 12:17 Dictated By: RONALD WHITE MD 121 Transcribed By : CORWIN on 05/25/17 1217 COPY TO: KERRY VELASQUEZ COMPONENT INSPECTOR CT CERVICAL SPINE WO [place] [address] Patient Name: ROBYN HOLLEY MR #: [id number] : 1930 Age/Sex: 87/F Req #: [id number] Adm Physician: Ordered by: KERRY VELASQUEZ COMPONENT INSPECTOR Report #: [id number] Location: ER Room/Bed: Procedure: [id number] CT/CT CERVICAL SPINE WO Exam Date: 05/25/17 Exam Time: 1130 REPORT STATUS: Signed EXAMINATION: Head and cervical spine CT without contrast. HISTORY: Status post fall, head trauma, head and neck pain COMPARISON: None. TECHNIQUE: Multidetector axial images were obtained without contrast from the foramen magnum to the vertex and through the cervical spine. The images were reconstructed using brain and bone algorithms. Thin section brain images were reformatted into coronal and sagittal planes. HEAD CT FINDINGS: Skull: No lytic or blastic lesions. No fractures. Parenchyma: Moderate confluent periventricular and coronary radiata white matter hypodensities, most likely nonspecific diameter vessel ischemic changes. No mass, hemorrhage or CT evidence of acute vascular insult. Brain volume: Normal for age. Ventricles: No hydrocephalus or displacement. Arteries: No density suggestive of thrombus. Dural sinuses: No abnormal density. Extra-axial spaces : No abnormal density. Foramen magnum: No mass, Chiari malformation, or basilar invagination. Sella: No obvious mass. Paranasal/ mastoid sinuses: Hyperpneumatization of sclerosis of the left adrenal right mastoid air cells may reflect sequela from remote inflammatory process. Otherwise no abnormalities. CERVICAL SPINE CT FINDINGS: Alignment: Normal alignment and lordosis. Soft tissues: Normal. Vertebrae: Normal height and density. No acute fracture, infection or neoplasm. Degenerative changes: C1-C2: Normal. C2-C3: Disc osteophyte and approximately 4 mm AP diameter calcified central disc protrusion and facet arthrosis mainly on the left. Moderate spinal canal stenosis. No significant foraminal stenoses. C3-C4: Disc osteophyte complex formation, bilateral uncovertebral and facet arthrosis. Mild spinal canal and moderate foraminal stenoses. Minimal anterolisthesis. C4-C5: Disc osteophyte formation, bilateral uncovertebral and facet arthrosis mainly on the left. Minimal anterolisthesis. Mild spinal canal and bilateral foraminal stenosis mainly on the left. C5-C6: Disc osteophyte complex formation, bilateral uncovertebral and facet hypertrophy mainly on the right. Severe right and mild left foraminal stenosis. C6-C7: Disc osteophyte complex formation, bilateral uncovertebral and facet arthrosis. Grade 1 anterolisthesis. Minimal foraminal narrowing. C7-T1: No spinal canal or foraminal stenosis. IMPRESSION: Head CT: 1. No acute posttraumatic intracranial hemorrhage 2. Moderate chronic microvascular ischemic changes. Cervical spine CT : 1. No acute fractures or dislocations. 2. Chronic degenerative changes as described. Note: Acute post traumatic spinal cord, vascular or ligamentous injury cannot adequately be assessed with CT. Signed by: Dr. Wendy Rivera M.D. on 05/25/2017 12:21 PM Dictated By: WENDY RIVERA MD 1221 Transcribed By: RENÉ on 05/25/17 1221 COPY TO: KERRY VELASQUEZ NP CT BRAIN WO [place] [address] Patient Name: ROBYN HOLLEY MR #: [id number] : 1930 Age/Sex: 87/F Req #: [id number] Adm Physician: Ordered by: KERRY VELASQUEZ NP Report #: [id number] Location: ER Room/Bed: Procedure: [id number] CT/CT BRAIN WO Exam Date: 05/25/17 Exam Time: 1130 REPORT STATUS: Signed EXAMINATION: Head and cervical spine CT without contrast. HISTORY: Status post fall, head trauma, head and neck pain COMPARISON: None. TECHNIQUE: Multidetector axial images were obtained without contrast from the foramen magnum to the vertex and through the cervical spine. The images were reconstructed using brain and bone algorithms. Thin section brain images were reformatted into coronal and sagittal planes. HEAD CT FINDINGS: Skull: No lytic or blastic lesions. No fractures. Parenchyma: Moderate confluent periventricular and coronary radiata white matter hypodensities, most likely nonspecific diameter vessel ischemic changes. No mass, hemorrhage or CT evidence of acute vascular insult. Brain volume: Normal for age. Ventricles: No hydrocephalus or displacement. Arteries: No density suggestive of thrombus. Dural sinuses: No abnormal density. Extra-axial spaces : No abnormal density. Foramen magnum: No mass, Chiari malformation, or basilar invagination. Sella: No obvious mass. Paranasal/ mastoid sinuses: Hyperpneumatization of sclerosis of the left adrenal right mastoid air cells may reflect sequela from remote inflammatory process. Otherwise no abnormalities. CERVICAL SPINE CT FINDINGS: Alignment: Normal alignment and lordosis. Soft tissues: Normal. Vertebrae: Normal height and density. No acute fracture, infection or neoplasm. Degenerative changes: C1-C2: Normal. C2-C3: Disc osteophyte and approximately 4 mm AP diameter calcified central disc protrusion and facet arthrosis mainly on the left. Moderate spinal canal stenosis. No significant foraminal stenoses. C3-C4: Disc osteophyte complex formation, bilateral uncovertebral and facet arthrosis. Mild spinal canal and moderate foraminal stenoses. Minimal anterolisthesis. C4-C5: Disc osteophyte formation, bilateral uncovertebral and facet arthrosis mainly on the left. Minimal anterolisthesis. Mild spinal canal and bilateral foraminal stenosis mainly on the left. C5-C6: Disc osteophyte complex formation, bilateral uncovertebral and facet hypertrophy mainly on the right. Severe right and mild left foraminal stenosis. C6-C7: Disc osteophyte complex formation, bilateral uncovertebral and facet arthrosis. Grade 1 anterolisthesis. Minimal foraminal narrowing. C7-T1: No spinal canal or foraminal stenosis. IMPRESSION: Head CT: 1. No acute posttraumatic intracranial hemorrhage 2. Moderate chronic microvascular ischemic changes. Cervical spine CT : 1. No acute fractures or dislocations. 2. Chronic degenerative changes as described. Note: Acute post traumatic spinal cord, vascular or ligamentous injury cannot adequately be assessed with CT. Signed by: Dr. Wendy Rivera M.D. on 05/25/2017 12:21 PM Dictated By: WENDY RIVERA MD 1221 Transcribed By: RENÉ on 05/25/17 1221 COPY TO: KERRY VELASQUEZ COMPONENT INSPECTOR CHEST SINGLE (NOT PORTABLE) [place] [address] Patient Name: ROBYN HOLLEY MR #: [id number] : 1930 Age/Sex: 87/F Req #: [id number] Adm Physician: Ordered by: KERRY VELASQUEZ COMPONENT INSPECTOR Report #: [id number] Location: ER Room/Bed: Procedure: [id number] DX/CHEST SINGLE (NOT PORTABLE) Exam Date: 05/25/17 Exam Time: 1145 REPORT STATUS: Signed PROCEDURE: X-RAY CHEST, ONE VIEW 1200 hrs. COMPARISON: None. 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 Aorta is ectatic with calcifications of the aortic arch. The pulmonary veins are prominent. There is eventration of the right diaphragm with overlying discoid atelectasis. There is mild prominence of the pulmonary interstitium. The lungs are hyperinflated at baseline. No consolidation. Costophrenic angles are sharp. No pneumothorax. The bones are diffusely demineralized with an anchor in the left humeral head. There are moderate degenerative changes of the left shoulder. Visualized ribs appear intact. CONCLUSION: 1. No acute traumatic pathology by x-ray. 2. Cardiomegaly and pulmonary venous hypertension. 3. 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 4. Pulmonary hyperinflation suggestive of COPD. Dictated by: Ronald White M.D. on 05/25/2017 at 12:34 Electronically approved by: Ronald White M.D. on 05/25/2017 at 12:34 Dictated By: RONALD WHITE MD 1234 Transcribed By: CORWIN on 05/25 1234 COPY TO: KERRY VELASQUEZ NP
--- OUTSIDE RECORDS SUMMARY | 2017-05-25 17:35 | XMS REPORT | Clinical Summary ---
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 Had EGD and colonoscopy when admitted [facility] last summer and had recurrent admission in [...] Outreach 03/27/2017 Documentation Quality Elijah Copeland 03/22/2017 [facility] Neurosurgery Ganesh Valero MD - Encounter Trenton Stephen MD [...] Christopher Figueroa III, MD 09/13/2016 Refill Internal Christopher Figueroa III, MD 08/08/2016 [place] Internal Christopher [...] Christopher Figueroa III, MD 06/06/2016 Telephone Quality aLrissa Carr RN 05/29/2016 Refill Internal Christopher Figueroa [...] Taken Blood Pressure 134/66 03/28/2017 12:33 PM MASH GRINDER Pulse 62 03/28/2017 1:06 PM MASH GRINDER Temperature 36.6 C (97.8 F) 03/28/2017 12:33 PM MASH GRINDER Respiratory Rate 16 03/28/2017 1:06 PM MASH GRINDER Oxygen Saturation 96% 03/28/2017 1:00 PM MASH GRINDER Inhaled Oxygen - - Concentration Weight 77.6 kg (171 lb) 03/22/2017 10:34 AM MASH GRINDER Height 167.6 cm (5' 6") 03/22/2017 10:34 AM MASH GRINDER Body Mass Index 27.6 03/22/2017 10:34 AM MASH GRINDER Plan of Treatment Health Maintenance Due Date Last Done Comments FOOT EXAM 1941 OPHTHALMOLOGY EXAM 1941 ZOSTER VACCINE 1991 PNEUMOCOCCAL 02/04/1996 POLYSACCHARIDE VACCINE AGE 65 AND OVER PNEUMOCOCCAL-13 02/04/1996 INFLUENZA VACCINE 10/07/2016 Procedures Procedure Name Priority Date/Time Associated Diagnosis Comments CV PACEMAKER PROGRAMMING Routine 03/24/2017 DL 10:40 AM MASH GRINDER ECHOCARDIOGRAM 2D Routine 03/23/2017 Results for this COMPLETE W MMODE SPECTRAL 2:43 PM MASH GRINDER procedure are in the COLOR DOPPLER (71562) results section. MN CRITICAL CARE, E/M Routine 03/22/2017 Results for this 30-74 MINUTES 7:53 PM MASH GRINDER procedure are in the results section. CV PACEMAKER DEFIB REMOTE Routine 03/05/2017 Heart failure, TECH SERVICE 9:53 AM MASH GRINDER unspecified heart failure chronicity, unspecified heart failure type Sick sinus syndrome MN ARTHROCENTESIS Routine 12/22/2016 Osteoarthritis of left Results for this ASPIR&/INJ MAJOR JT/BURSA 2:49 PM CDT glenohumeral joint procedure are in the W/O US results section. CV PACEMAKER DEFIB REMOTE Routine 10/31/2016 SSS (sick sinus syndrome) TECH SERVICE 1:04 PM CDT MN ARTHROCENTESIS Routine 07/09/2016 Left shoulder pain, Results [...] 123 (H) 65 - 99 mg/dL Comment: [facility] Notified RN Meter ID: [id number] Smoking Pipe Coater: Harry Ochoa Specimen Performing Laboratory [facility] DEPARTMENT OF PATHOLOGY AND GENOMIC MEDICINE [address] [place] [address] * Creatine kinase, total (CPK) (03/26/2017 4:20 AM) Component Value Ref Range Creatine kinase 98 26 - 192 U/L Specimen Performing Laboratory Plasma specimen [facility] DEPARTMENT OF PATHOLOGY AND GENOMIC MEDICINE [address] [place] [address] * CT Head Wo Contrast (03/26/2017 1:08 AM) Only the most recent of 4 results within the time period is included. Specimen Performing Laboratory [facility] [address] [place] [address] HEAD WO CONTRAST CLINICAL INDICATION:fu [...] extra-axial hemorrhage overlying the right parieto-occipital region. [facility]-[id number] Procedure Note Interface, Radiology Results Incoming - 03/26/2017 2:[address] HEAD WO CONTRAST CLINICAL INDICATION: fu [...] extra-axial hemorrhage overlying the right parieto-occipital region. [facility]-[id number] * XR Chest 1 Vw Portable (03/25/2017 2:45 PM) Only the most recent of 2 results within the time period is included. Specimen Performing Laboratory [facility] [address] [place] [address] Narrative Examination: XR CHEST 1 VW PORTABLE [...] osseous pathology. 4. Appearance is otherwise similar. [facility]-[id number] Procedure Note Interface, Radiology Results Incoming - 03/25/2017 3:24 PM MASH GRINDER Examination: XR CHEST 1 VW PORTABLE Clinical [...] osseous pathology. 4. Appearance is otherwise similar. [facility]-[id number] * Smear review (03/25/2017 6:40 AM) Only the most recent of 3 results within the time period is included. Component Value Ref Range Platelet slide review Audelia adequate Anisocytosis Moderate Schistocytes Occasional Ovalocytes Moderate Specimen Performing Laboratory [facility] DEPARTMENT OF PATHOLOGY AND GENOMIC MEDICINE [address] [place] [address] * CBC with platelet and differential (03/25/2017 [...] (promyelocytes, myelocytes, metamyelocytes) Specimen Performing Laboratory Blood [facility] DEPARTMENT OF PATHOLOGY AND [address] [address] * Estimated GFR (03/25/2017 4:00 AM) Only [...] and Americans. Specimen Performing Laboratory Plasma specimen [facility] DEPARTMENT OF PATHOLOGY AND [facility] [address] [place] [address] * Basic metabolic panel (03/25/2017 4:00 AM) [...] 10.2 mg/dL Specimen Performing Laboratory Plasma specimen [facility] DEPARTMENT OF PATHOLOGY AND [address] [address] * Gram stain (03/24/2017 12:50 PM) Component Value Ref Range Gram stain result Rare WBC's No organisms seen Comment: Specimen Information Specimen Source: Urine Specimen Site: See UA Specimen Performing Laboratory Urine [facility] [place] [address] * Urine culture (03/24/2017 12:50 PM) Component Value Ref Range Urine culture isolate Mixed Gram positive neftaly 10-5 cfu/ml (A) Comment: Specimen Information Specimen Source: Urine Specimen Site: See UA Specimen Performing Laboratory Urine [facility] [place]PARTMENT [place] [address] * Urinalysis screen and microscopy, with reflex [...] None seen UA Specimen Performing Laboratory Urine [facility] DEPARTMENT OF PATHOLOGY AND GENOMIC MEDICINE [address] [place] [address] * Cv pacemaker defib or ilr interrogation (03/24/2017 10:40 AM) [facility] [address] [place] [address] * Hemoglobin A1c (03/24/2017 4:40 AM) Only [...] with type 1 diabetes. Specimen Performing Laboratory [facility] DEPARTMENT OF PATHOLOGY AND GENOMIC MEDICINE [address] [place] [address] * Ferritin level (03/24/2017 4:00 AM) Component Value Ref Range Ferritin level 240 (H) 13 - 150 ng/mL Specimen Performing Laboratory Plasma specimen [facility] DEPARTMENT OF PATHOLOGY AND GENOMIC MEDICINE [address] [place] [address] * XR Knee 3 Vw Right (03/23/2017 9:10 PM) [facility]imen [facility] [address] [place] [address] Narrative XR KNEE 3 VW RIGHT CLINICAL INDICATION:pain sp fall COMPARISON:None. IMPRESSION: There is no acute fracture or dislocation. There is no knee joint effusion. The bones are demineralized. There is mild osteoarthrosis of the knee, worst in the medial femorotibial compartment. [facility]-[id number] Procedure Note Interface, Radiology Results Incoming - 03/23/2017 9:34 PM MASH GRINDER XR KNEE 3 VW RIGHT CLINICAL INDICATION: pain sp fall COMPARISON: None. IMPRESSION: There is no acute fracture or dislocation. There is no knee joint effusion. The bones are demineralized. There is mild osteoarthrosis of the knee, worst in the medial femorotibial compartment. [facility]-[id number] * XR Knee 3 Vw Left (03/23/2017 9:10 PM) Specimen Performing Laboratory [address] [address] Narrative XR KNEE 3 VW LEFT CLINICAL INDICATION:pain sp fall COMPARISON:None. IMPRESSION: There is no acute fracture or dislocation. There is no knee joint effusion. The bones are demineralized. There is moderate osteoarthrosis of the knee, worst in the medial femorotibial compartment. [facility]-[id number] Procedure Note Interface, Radiology Results Incoming - 03/23/2017 9:33 PM MASH GRINDER XR KNEE 3 VW LEFT CLINICAL INDICATION: pain sp fall COMPARISON: None. IMPRESSION: There is no acute fracture or dislocation. There is no knee joint effusion. The bones are demineralized. There is moderate osteoarthrosis of the knee, worst in the medial femorotibial compartment. [facility]-[id number] * Echocardiogram complete w contrast and 3D if needed (03/23/2017 2:43 PM) Specimen Performing Laboratory [facility] [address] [id number] Narrative Echocardiography Report [address] [address], [place] [address] Pat.Name:Laureano HOLLEY.ID:[id number] .Date: 03/23/2017 Refer.MD:GANESH VALERO MD Exam Time: 2:09:00 PMStudy Type:Routine Echo Height:64inWeight:171lb BSA: 1.83 m2 DOBAge:1929,87Y Sex: FEMALEBP: 156/76 Sonogrphr: Hyacinth Garcia RDCS, RVSPat. Stat.:Inpatient Study Status:Final Echo Event ID:[id number] Order ID:[id number] Reason for Study:Syncope without cardiac evidence History [...] RAPof 5 mmHg. MEASUREMENTS: 2D Parasternal Long Lynch Ao An2.2 cmLVPWd 1.7 cm LVOT 2 [...] LVOT Area3.1 cm2 LVOT SV 67.8 ml UOZLrsQzn175.9 cm/sHR 59.9 bpm LVOTpkPG 6.7 mmHgLVOT CO 4.1 l/min LVOTmnPG 3.5 mmHgLVOT CI 2.2 l/m/m2 LVOT TVI21.6 cm Signed 03/23/2017 07:23 PM Koki Viveros M.D. Procedure Note Interface, Radiology Results In - 03/23/2017 7:24 PM MASH GRINDER Echocardiography Report [address] [address], [place] [address] [facility].Name: ESTRELLA HOLLEY Ragini.ID: [id number] .Date: 03/23/2017 Refer.MD: GANESH VALERO MD Exam Time: 2:09:00 PM Study Type:Routine Echo Height: 64in Weight: 171lb BSA: 1.83 m2 Age: 11 1930,87Y Sex: FEMALE BP: 156/76 Sonogrphr: Hyacinth Garcia RDCS, RVSPat. Stat.:Inpatient Study Status:Final Echo Event ID:[id number] Order ID: [id number] Reason for Study:Syncope without cardiac evidence History [...] of 5 mmHg. MEASUREMENTS: 2D Parasternal Long Lynch Ao An 2.2 cm LVPWd 1.7 cm [...] Contrast (03/23/2017 1:52 PM) Specimen Performing Laboratory [address] [address] Narrative EXAMINATION: CT CERVICAL SPINE WO CONTRAST [...] to severe right C5-6 spondylotic foraminal adenosis. [id number] Procedure Note Hm Interface, Radiology Results Incoming - 03/23/2017 2:08 PM MASH GRINDER EXAMINATION: CT CERVICAL SPINE WO CONTRAST CLINICAL [...] to severe right C5-6 spondylotic foraminal adenosis. [id number] * Pv carotid duplex (03/23/2017 10:40 AM) Specimen Performing Laboratory [facility] [address] Vascular Ultrasound Laboratory Carotid Artery Duplex Report [address] [facility] [address], [place] [address] For it quality analyst purposes, the categorization of the degree of the stenosis of this exam is based on criteria described in the IAC carotid stenosis grading white paper( www.intersocietal.org/Vascular) and Mike Holt, Javier Perera, et al. Carotid artery stenosis: youngblood-scale and Doppler US diagnosis--Society of Radiologists in Ultrasound Consensus Conference. Radiology. 2003 Nov; 229(2):340-6. Pat.Name:Laureano HOLLEY.ID:[id number] .Date: 03/23/2017 Refer.MD:NICOLASA AYALA MD Exam Time: 10:14:00 AM Study Type:Carotid DOBAge:1930,87YSex: FEMALE Sonogrphr: Porfirio Gan. Stat.:Inpatient Room:[facility] TapeVol: [place], CPT - 4: 97[address] Echo Event ID:[id number] Order ID:[id number] Reason for Study:An episode of syncope and [...] Radiology Results In - 03/23/2017 12:27 PM [facility] Vascular Ultrasound Laboratory Carotid Artery Duplex Report [address] [place] [address] For it quality analyst purposes, the categorization of the degree of the stenosis of this exam is based on criteria described in the IAC carotid stenosis grading white paper( www.intersocietal.org/Vascular) and Mike Holt, Javier Perera, et al. Carotid artery stenosis: youngblood-scale and Doppler US diagnosis--Society of Radiologists in Ultrasound Consensus Conference. Radiology. 2003 Jan; 229(2):340-6. Pat.Name: ESTRELLA HOLLEY Ragini.ID: [id number] .Date: 03/23/2017 Refer.MD: NICOLASA AYALA MD Exam Time: 10:14:00 AM Study Type:Carotid Age: 12 1930,87Y Sex: FEMALE Sonogrphr: Lynn Stout RVT Pat. Stat.:Inpatient Room: [facility] Tape Vol: [place], CPT - 4: 49073 Echo Event ID:[id number] Order ID: [id number] Reason for Study:An episode of syncope and [...] myocardial injury. Specimen Performing Laboratory Plasma specimen [facility] DEPARTMENT OF PATHOLOGY AND GENOMIC MEDICINE [address] [place], [place] [id number] * Partial thromboplastin time, activated (03/22/2017 11:56 PM) Component Value Ref Range PTT 25.1 23.0 - 36.0 sec Comment: PTT therapeutic range for unfractionated heparin is 61.0-112.0 seconds which corresponds to Anti-Xa 0.3-0.7 U/ml. Specimen Performing Laboratory Blood [facility] DEPARTMENT OF PATHOLOGY AND [facility] [address] [place] [address] * Prothrombin time with INR (03/22/2017 11:56 PM) Component Value Ref Range Prothrombin time 13.8 12.0 - 15.0 sec INR 1.0 Comment: The International Normalized Ratio (INR) is a therapeutic monitoring tool for patients who are stable on oral anticoagulant therapy. An INR of 2.0-3.0 is suggested for deep vein thrombosis/pulmonary embolism. Specimen Performing Laboratory Blood [facility] DEPARTMENT OF PATHOLOGY AND [facility] [address] [place] [address] * Type and screen (03/22/2017 11:56 PM) Only the most recent of 3 results within the time period is included. Component Value Ref Range ABO grouping B Rh type POS Antibody screen (gel) NEG Specimen Performing Laboratory Blood [facility] DEPARTMENT OF PATHOLOGY AND GENOMIC MEDICINE [address] [place] [address] * B natriuretic peptide (03/22/2017 11:56 PM) Component Value Ref Range BNP 184 (H) 0 - 100 pg/mL Specimen Performing Laboratory [facility] DEPARTMENT OF PATHOLOGY AND GENOMIC MEDICINE [address] [place], [place] [address] * Comprehensive metabolic panel (03/22/2017 11:56 PM) [...] 5.9 (L) 6.3 - 8.3 g/dL Comment: [place] 4.6-7.0 g/dL 1 week 4.4-7.6 g/dL 7 [...] 1.2 mg/dL Specimen Performing Laboratory Plasma specimen [facility] DEPARTMENT OF PATHOLOGY AND GENOMIC MEDICINE [address] [place] [address] * ECG ED Preliminary Interpretation - NOT AN ORDER (03/22/2017 7:53 PM) Mohit Orozco MD 03/22/20177:53 PM ECG ED Preliminary Interpretation - Not an Order Performed by: LOWELL OROZCO Authorized by: LOWELL OROZCO ECG reviewed by ED Physician in the absence of a radiologist physician: yes Rate: ECG rate:92 ECG rate assessment: [...] imminent or life-threatening deterioration of the following conditions: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 or compromise and trauma Critical care [...] Range Ventricular rate 80 Atrial rate 80 MN interval 166 QRSD interval 150 QT interval 388 QTC interval 447 P axis 1 51 QRS axis 1 -67 T wave axis 106 EKG impression Atrial-sensed ventricular-paced rhythm-Abnormal ECG-In automated comparison with ECG of 08-MAY-2016 13:45,-Electronic ventricular pacemaker has replaced Wide QRS rhythm- Specimen Performing Laboratory [facility] [address] [place] [address] * Cv pacemaker defib or ilr interrogation (03/05/2017 9:53 AM) Specimen Performing Laboratory [facility] [address] [place] [address] * Transfuse RBC (01/23/2017 4:11 PM) Only the most recent of 6 results within the time period is included. * Prepare RBC, 2 Units (01/22/2017 2:32 PM) Only the most recent of 2 results within the time period is included. Component Value Ref Range Product name Red Blood Cells -1, Leukored Unit number [id number] Product code [id number] Dispense status Transfused Blood expiration date 20170226 Blood type code 7300 Blood type B POSITIVE Product name Red Blood Cells -1, Leukored Unit number [id number] Product code [id number] Dispense status Transfused Blood expiration date 20170226 Blood type code 7300 Blood type B POSITIVE Specimen Performing Laboratory [facility] DEPARTMENT OF PATHOLOGY AND GENOMIC MEDICINE [address] [place] [address] * Large Joint Arthrocentesis (12/22/2016 2:49 PM) Narrative Ze Jones MD 12/22/20162:49 PM Large Joint Arthrocentesis Consent given by: patient Timeout: Immediately prior to procedure a time out was called to verify the correct patient, procedure, equipment, lan support specialist and site/side marked as required Supporting Documentation [...] 1:04 PM) Specimen Performing Laboratory [facility] [address] [place] [address] * Large Joint Arthrocentesis (07/09/2016 1:59 PM) Narrative Ze Jones MD 07/09/20161:59 PM Large Joint Arthrocentesis Consent given by: patient Timeout: Immediately prior to procedure a time out was called to verify the correct patient, procedure, equipment, lan support specialist and site/side marked as required Supporting Documentation [...] 1:34 PM) Specimen Performing Laboratory [facility] [address] [place] [address] Narrative AP, scapular Y, and axillary views [...] 2:36 PM) Specimen Performing Laboratory [facility] [address] [place] [address] after 05/24/2016 Insurance Payer Benefit Subscriber ID Type Phone Address Plan / Group MEDICARE MEDICARE xxxxxxxxxx Medicare [place], [place] PART A AND B AARP AARP xxxxxxxxxxx Commercial SUPPLEMENT
--- NOTE | 2017-05-25 18:08 | History and Physical ---
HISTORY OF PRESENT ILLNESS: [facility] is a patient from the [facility]. She is an 87-year-old white female with past medical history positive for hypertension, diabetes, history of COPD, history of CHF, status post permanent pacemaker placement. Apparently she fell at the [facility]. CT of the head and cervical spine CT show no evidence of any fractures or any intracerebral bleed. The patient was found to have acute renal failure, also urinary tract infection and leukocytosis most likely compatible with sepsis and dehydration. Patient is admitted to the hospital. REVIEW OF SYSTEMS: CARDIOVASCULAR: No chest pain. No palpitations. RESPIRATORY: She does complain of shortness of breath on and off. No cough. GASTROINTESTINAL: No nausea, no vomiting, no diarrhea. No blood in the stool. GENITOURINARY: No frequency, no dysuria. ALLERGIES: SHE IS ALLERGIC TO PENICILLIN. SOCIAL HISTORY: She claims that she does not smoke and she does not drink. PAST MEDICAL HISTORY: Hypertension, history of diabetes, status post permanent pacemaker placement. PHYSICAL EXAMINATION: HEART: Shows regular rhythm. Normal S1 and S2 sounds. LUNGS: Clear bilaterally. ABDOMEN: Soft. EXTREMITIES: Show no evidence of cyanosis, edema or trauma. FINAL IMPRESSION: 1. Sepsis secondary to urinary tract infection. 2. Pyelonephritis. 3. Acute renal failure on chronic renal failure. 4. 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 5. Hypertension with hypertensive nephropathy. 6. History of chronic obstructive pulmonary disease. PLAN OF TREATMENT: We are going to continue the IV fluids started at the emergency room. Continue with the current IV antibiotics. We are going to continue monitoring blood sugar a.c. and nightly. Continue monitoring BUN and creatinine. We are going to repeat a BMP tomorrow. We are going to resume the [facility] medications. The diet is going to be a renal diabetic diet. Chest x-ray showed no acute traumatic pathology, cardiomegaly and pulmonary hypertension. She has of the right diaphragm, has hyperinflation suggestive of COPD. Pelvis x-ray came back negative for fracture. Another abnormality, her white blood count is 17.45. Carbon dioxide is 30. BUN 47, creatinine 1.79. Calcium 10.9, magnesium 1.0. PTT is 21.2. Cardiac enzymes so far are negative. EKG showed permanent pacemaker spikes. Patient will be admitted to the hospital for IV dehydration, IV antibiotics. Continue monitoring blood sugar a.c. and nightly. Renal ultrasound is going to be ordered. Magnesium is going to replaced. We are going to repeat the magnesium level tomorrow. Job#: [id number] EV
[2017-05-25] MEDS: SODIUM CHLORIDE 0.9% 1000ML 1,000 ML IV SCH ×2 (19:10→21:59)
[2017-05-25 20:33] VITALS: BP 134/59
[2017-05-25] MEDS: INSULIN REGULAR, HUMAN 100 UNIT/1 ML 3ML VIAL SQ SCH (21:00)
[2017-05-25 21:55] LABS: CREATINE KINASE MB 3.2 ng/mL (0-5.0)
[2017-05-25] MEDS: MEROPENEM 500 MG VIAL IV SCH (21:59)
[2017-05-25] MEDS ORDERED: MEROPENEM 500MG 500 MG in SODIUM CHLORIDE 0.9% 50ML 50 ML IV SCH (22:00)
[2017-05-25 22:22] VITALS: BP 134/59
[2017-05-25 22:23] VITALS: BP 134/59
[2017-05-26] VITALS (7 sets, daily range): BP systolic 139–180; BP diastolic 60–94
[2017-05-26] MEDS: MEROPENEM 500 MG VIAL IV SCH ×3 (05:02→21:06)
[2017-05-26 06:33] LABS: BASOPHILS % 0.3 % (0.0-1.0); EOSINOPHILS # (AUTO) 0.3 (0.0-0.4); EOSINOPHILS % 2.2 % (0.0-6.0); HEMATOCRIT 37.3 % (34.2-44.1); HEMOGLOBIN 12.1 g/dL (12.0-16.0); LYMPHOCYTES # (AUTO) 0.8 (1.0-3.2); LYMPHOCYTES % 7.1 % (18.0-39.1); MEAN CORPUSCULAR HEMOGLOBIN 28.5 pg (28-32); MEAN CORPUSCULAR HGB CONC 32.4 g/dL (31-35); MONOCYTES # (AUTO) 0.7 (0.2-0.8); MONOCYTES % 6.4 % (4.4-11.3); NEUTROPHILS # (AUTO) 9.3 (2.1-6.9); NEUTROPHILS % 80.9 % (38.7-80.0); PLATELET COUNT 284 x10e3/uL (140-360); RED BLOOD COUNT 4.24 x10e6/uL (3.6-5.1); RED CELL DISTRIBUTION WIDTH 17.2 % (11.7-14.4)
[2017-05-26 07:02] LABS: CREATINE KINASE MB 2.5 ng/mL (0-5.0)
[2017-05-26 07:35] LABS: ANION GAP 11.1 mmol/L (8-16); CALCIUM 9.6 mg/dL (8.4-10.2); CREATININE, SERUM 1.24 mg/dL (0.57-1.11); POTASSIUM 4.1 mmol/L (3.5-5.1)
[2017-05-26 08:08] LABS: ANISOCYTOSIS SLIGHT; BAND NEUTROPHILS % (MANUAL) 1 %; EOSINOPHILS % (MANUAL) 3 % (0-7); LYMPHOCYTES % (MANUAL) 10 % (19-48); MONOCYTES % (MANUAL) 6 % (3.4-9.0); NEUTROPHILS % (MANUAL) 80 % (40-74); PLATELET ESTIMATE ADEQUATE; RBC MORPHOLOGY COMMENT NORMAL
[2017-05-26 08:09] LABS: PLATELET MORPHOLOGY COMMENT RARE EDTA CLUMPING
[2017-05-26] MEDS: MAGNESIUM OXIDE 400 MG TAB PO SCH ×2 (09:00→17:44)
[2017-05-26] MEDS: SODIUM CHLORIDE 0.9% 1000ML 1,000 ML IV SCH ×2 (09:02→17:44)
[2017-05-26] MEDS: INSULIN REGULAR, HUMAN 100 UNIT/1 ML 3ML VIAL SQ SCH ×4 (10:54→20:33)
[2017-05-26] MEDS ORDERED: LOSARTAN POTAS100 MG PO (13:01)
[2017-05-26] MEDS ORDERED: NOVOLIN N100 UNIT/1 SUBD (13:01)
[2017-05-26] MEDS ORDERED: PIROXICAM10 MG PO (13:01)
[2017-05-26] MEDS ORDERED: ACETAMINOPHEN325 M1 PO (13:01)
[2017-05-26] MEDS ORDERED: TOPROL XL50 MG PO (13:01)
[2017-05-26] MEDS ORDERED: ASCORBIC ACID500 MG PO (13:01)
[2017-05-26] MEDS ORDERED: SPIRIVA18 MCG INH (13:01)
[2017-05-26] MEDS ORDERED: PANTOPRAZOLE SO40 MG PO (13:01)
[2017-05-26] MEDS ORDERED: ATORVASTATIN CA20 MG PO (13:01)
[2017-05-26] MEDS ORDERED: LASIX20 MG PO (13:01)
[2017-05-26] MEDS ORDERED: VITAMIN D1000 UNI1 PO (13:01)
[2017-05-26] MEDS ORDERED: MELATONIN3 MG PO (13:01)
[2017-05-26] MEDS ORDERED: CLONIDINE HCL0.1 MG PO (13:01)
[2017-05-26] MEDS ORDERED: ADVAIR 250-501 EACH (13:01)
[2017-05-26] MEDS ORDERED: CARDIZEM CD180 MG PO (13:01)
[2017-05-26] MEDS ORDERED: CLONIDINE HCL 0.2 MG TAB PO PRN (18:45)
[2017-05-26] MEDS ORDERED: ACETAMINOPHEN 325 MG TAB PO PRN (18:45)
[2017-05-26] MEDS ORDERED: CLONIDINE HCL 0.1 MG TAB PO PRN (18:45)
[2017-05-26] MEDS ORDERED: MELATONIN 3 MG TAB PO PRN ×2 (18:45)
[2017-05-26] MEDS: ATORVASTATIN 20 MG TAB PO SCH (21:06)
--- NOTE | 2017-05-26 23:50 | Progress Note ---
DATE: May 26, 2017 INTERNAL MEDICINE PROGRESS NOTE SUBJECTIVE: She is doing fine. No significant complaints. PHYSICAL EXAM: VITAL SIGNS: Blood pressure 180/81. Temperature 98.4, heart rate 64 per minute, respiratory rate 18 per minute, oxygen saturation 97%. HEART: Regular rhythm. No murmur. No extra sounds. LUNGS: Clear bilaterally. ABDOMEN: Soft. EXTREMITIES: Show no evidence of cyanosis, edema or trauma. BLOOD WORK: We have BMP with a sodium 141, potassium 4.1, chloride 106, CO2 28, BUN 36, creatinine 1.24. Glucose 135. On the CBC, white blood count 11.4, hemoglobin 12.1, hematocrit 37.3, platelet count 284,000. PT 13.2, INR 1.08. PTT 31.2. AST 14, ALT 12. Total bilirubin 0.4 and alkaline phosphatase 83. FINAL IMPRESSION 1. Sepsis secondary to urinary tract infection. 2. Pyelonephritis. 3. [id number]-czmzcxw renal failure, stage 3. 4. 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 5. Hypertension with hypertensive nephropathy. 6. History of chronic obstructive pulmonary disease. 7. History of congestive heart failure. PLAN OF TREATMENT: Going to continue with sodium chloride. We are going to decrease to 75 mL an hour. Continue monitoring blood sugar a.c. and nightly. Continue magnesium oxide 400 mg twice a day. Zofran 4 mg IV q.4 h. as needed for vomiting. Meropenem 500 mg IV q.8 hours. We are going to also renew the home medications which include Tylenol 325 mg daily 2 tablets q.4 h. as needed for pain. Advair Diskus 250/50 one inhalation twice a day. Vitamin C 500 mg one time a day. Lipitor 20 mg daily. Cardizem LA 240 mg daily. Clonidine 0.1 mg twice a day. Furosemide is going to be placed on hold. Continue NPH insult 5 units subcutaneously one time a day. Continue monitoring blood sugar a.c. and nightly. Continue losartan 100 mg daily. Continue melatonin 3 mg at bedtime. Metoprolol 50 mg once a day. Going to discontinue piroxicam. Continue Protonix 40 mg daily and Spiriva 1 inhalation daily. Vitamin D 50,000 units once a week on Thursday. We already did an ultrasound which showed evidence of renal insufficiency. Continue current antibiotic therapy. We are going to wait for the blood and urine culture report to see if we need to adjust the antibiotics. Going to repeat a CBC and a BMP tomorrow. We are going to consult [id number] like [facility] for possibility of transfer for continuation of IV antibiotics. Job#: [id number] ROSS
[2017-05-27] VITALS (10 sets, daily range): BP systolic 125–185; BP diastolic 60–96
[2017-05-27] MEDS: MEROPENEM 500 MG VIAL IV SCH ×2 (05:02→15:23)
[2017-05-27 06:53] LABS: BASOPHILS # (AUTO) 0.1 (0.0-0.1); BASOPHILS % 1.1 % (0.0-1.0); EOSINOPHILS # (AUTO) 0.3 (0.0-0.4); HEMATOCRIT 40.2 % (34.2-44.1); LYMPHOCYTES % 7.6 % (18.0-39.1); MEAN CORPUSCULAR HEMOGLOBIN 28.1 pg (28-32); MEAN CORPUSCULAR HGB CONC 32.3 g/dL (31-35); MONOCYTES # (AUTO) 0.9 (0.2-0.8); NEUTROPHILS # (AUTO) 10.6 (2.1-6.9); NEUTROPHILS % 80.1 % (38.7-80.0); PLATELET COUNT 306 x10e3/uL (140-360); RED BLOOD COUNT 4.62 x10e6/uL (3.6-5.1); RED CELL DISTRIBUTION WIDTH 16.8 % (11.7-14.4)
[2017-05-27 07:26] LABS: ANION GAP 10.3 mmol/L (8-16); BLOOD UREA NITROGEN 23 mg/dL (7-26); BUN/CREATININE RATIO 26 (6-25); CARBON DIOXIDE 27 mmol/L (22-29); CHLORIDE 107 mmol/L (98-107); CREATININE, SERUM 0.87 mg/dL (0.57-1.11); EST GLOMERULAR FILTRATION RATE > 60 ML/MIN (60-); GLUCOSE 157 mg/dL (74-118); POTASSIUM 4.3 mmol/L (3.5-5.1); SODIUM 140 mmol/L (136-145)
[2017-05-27 08:15] LABS: EOSINOPHILS % (MANUAL) 1 % (0-7); LYMPHOCYTES % (MANUAL) 4 % (19-48); MONOCYTES % (MANUAL) 6 % (3.4-9.0); NEUTROPHILS % (MANUAL) 88 % (40-74)
[2017-05-27] MEDS: PANTOPRAZOLE SOD 40 MG TABEC PO SCH (08:15)
[2017-05-27 08:16] LABS: ANISOCYTOSIS SLIGHT; PLATELET ESTIMATE ADEQUATE; PLATELET MORPHOLOGY COMMENT NORMAL; RBC MORPHOLOGY COMMENT NORMAL
[2017-05-27] MEDS: DILTIAZEM HCL 120 MG CAP CD PO SCH (08:16)
[2017-05-27] MEDS: LOSARTAN POTASSIUM 100 MG TAB PO SCH (08:17)
[2017-05-27] MEDS: ASCORBIC ACID 500 MG TAB PO SCH (08:17)
[2017-05-27] MEDS: FUROSEMIDE 20 MG TAB PO SCH (08:17)
[2017-05-27] MEDS: MAGNESIUM OXIDE 400 MG TAB PO SCH ×2 (08:17→17:08)
[2017-05-27] MEDS: METOPROLOL SUCCINATE 50 MG TAB XL PO SCH (08:17)
[2017-05-27] MEDS: ERGOCALCIFEROL 50,000 UNIT CAP PO SCH (08:17)
[2017-05-27] MEDS: INSULIN REGULAR, HUMAN 100 UNIT/1 ML 3ML VIAL SQ SCH ×4 (08:30→20:27)
[2017-05-27] MEDS ORDERED: DILTIAZEM HCL 180 MG CAP CD PO SCH (09:00)
[2017-05-27] MEDS: TIOTROPIUM 18 MCG INH POWDER INH SCH (09:00)
[2017-05-27] MEDS: SALMETEROL/FLUTICASONE 250/50 INH SCH ×2 (09:00→17:00)
[2017-05-27] MEDS ORDERED: CHOLECALCIFEROL 1,000 UNIT TAB PO SCH (09:00)
[2017-05-27] MEDS: NPH, HUMAN INSULIN ISOPHANE 100 UNIT/1 ML 3ML VIAL SQ SCH (09:00)
[2017-05-27] MEDS ORDERED: NITROFURANTOIN 50 MG CAP PO SCH (18:00)
--- NOTE | 2017-05-27 18:06 | Discharge Summary ---
HISTORY OF PRESENT ILLNESS: An 87-year-old female who has a past medical history positive for hypertension, diabetes, status post permanent pacemaker placement. [facility] a [facility]. She also has history COPD and CHF. She fell at the [facility]. She hit her head and cervical spine. CT of the head and CT of cervical spine showed no evidence of any fracture or any intracerebral bleed. She was also found to have acute renal failure and also urinary tract infection and leukocytosis. She was empirically started on IV antibiotics. A urine culture came back, which showed gram-negative bacteria sensitive to these antibiotics. We are going to transfer her back to the fci tomorrow as long as the blood cultures are negative. PHYSICAL EXAM: HEART: Regular rhythm. No murmur. No extra sounds. LUNGS: Clear bilaterally. ABDOMEN: Soft. EXTREMITIES: Show no evidence of cyanosis, edema or trauma. LABORATORY DATA: On the BMP sodium 140, potassium 4.3, chloride 107. CO2 27. BUN 23, creatinine 0.87, glucose 157. On the CBC white blood count 13.2, hemoglobin 13.0, hematocrit 40.2, platelet count 306,000. PT 13.2, INR 1.08, PTT 21.2. AST 14, ALT 12. Total bilirubin 0.4. Alkaline phosphatase 83. FINAL IMPRESSION 1. Sepsis secondary to urinary tract infection. 2. Acute renal insufficiency. 3. Essential hypertension. 4. Diabetes mellitus type 2. On the urine culture more specifically showing E coli sensitive to different antibiotics, but the problem is the patient is allergic to sulfa drugs, penicillins, cephalexin and codeine. Right now the patient is getting meropenem, so at this point in time the best choice will be nitrofurantoin. We can switch her to nitrofurantoin 50 mg p.o. q.6 hours times 3 days. The patient can go back to the [facility]ci as long as her blood culture is negative, hopefully tomorrow. CHIDI BIRMINGHAM MD Job#: [id number]
[2017-05-27] MEDS: NITROFURANTOIN 50 MG CAP PO SCH (20:26)
[2017-05-27] MEDS: ATORVASTATIN 20 MG TAB PO SCH (20:26)
[2017-05-28] MEDS: NITROFURANTOIN 50 MG CAP PO SCH ×3 (01:07→12:09)
[2017-05-28 05:00] VITALS: BP 131/62
[2017-05-28] MEDS: SALMETEROL/FLUTICASONE 250/50 INH SCH (07:06)
[2017-05-28] MEDS: TIOTROPIUM 18 MCG INH POWDER INH SCH (07:06)
[2017-05-28 08:29] VITALS: BP 155/71
[2017-05-28] MEDS: INSULIN REGULAR, HUMAN 100 UNIT/1 ML 3ML VIAL SQ SCH ×2 (08:30→12:09)
[2017-05-28] MEDS: NPH, HUMAN INSULIN ISOPHANE 100 UNIT/1 ML 3ML VIAL SQ SCH (08:30)
[2017-05-28] MEDS: PANTOPRAZOLE SOD 40 MG TABEC PO SCH (08:30)
[2017-05-28] MEDS: FUROSEMIDE 20 MG TAB PO SCH (09:30)
[2017-05-28] MEDS: MAGNESIUM OXIDE 400 MG TAB PO SCH (09:30)
[2017-05-28] MEDS: ASCORBIC ACID 500 MG TAB PO SCH (09:30)
[2017-05-28] MEDS: ERGOCALCIFEROL 50,000 UNIT CAP PO SCH (09:30)
[2017-05-28] MEDS: LOSARTAN POTASSIUM 100 MG TAB PO SCH (09:30)
[2017-05-28] MEDS: DILTIAZEM HCL 120 MG CAP CD PO SCH (09:30)
[2017-05-28 09:39] VITALS: BP 155/71
[2017-05-28] MEDS ORDERED: NITROFURANTOIN100 MG PO (10:56)
[2017-05-28 11:53] VITALS: BP 146/68
[2017-05-28] MEDS: METOPROLOL SUCCINATE 50 MG TAB XL PO SCH (12:09)
== END 2017-05-28 12:33 | DRG 872 ==
LOC: ER 10:37 → ERHOLD 17:32 → IMCU 20:06 → OBSVTOIN 05-26 11:58
PROVIDERS: ADMIT Internal Medicine; ATTEND Internal Medicine
DX: A41.51 Sepsis due to Escherichia coli [E. coli] (principal); N17.9 Acute kidney failure, unspecified; E11.22 Type 2 diabetes mellitus with diabetic chronic kidney disease; I13.0 Hypertensive heart and chronic kidney disease with heart failure and stage 1 through stage 4 chronic kidney disease, or unspecified chronic kidney disease; I50.9 Heart failure, unspecified; N10 Acute pyelonephritis; R65.20 Severe sepsis without septic shock; N18.3 Chronic kidney disease, stage 3 (moderate); I25.10 Atherosclerotic heart disease of native coronary artery without angina pectoris; Z79.4 Long term (current) use of insulin; B96.20 Unspecified Escherichia coli [E. coli] as the cause of diseases classified elsewhere; Z16.24 Resistance to multiple antibiotics
CPT/HCPCS: 36415; 70450; 71045; 72125; 72170; 80048; 80053; 81001; 82550; 82553; 82948; 83735; 84484; 85025; 85610; 85730; 87040; 87086; 87186; 93005; 94640; 96372; 97139; 99285; G0378; J2185; J7030

== ENCOUNTER 2017-07-01 16:54 | Emergency (ER) | payer MEDICARE ==
[~2017-07-01] VITALS: Ht 160 cm; Wt 70.8 kg
[~2017-07-01 16:54] MED LIST: ACETAMINOPHEN325 M1 PO; ADVAIR 250-501 EACH; ASCORBIC ACID500 MG PO; ATORVASTATIN CA20 MG PO; CARDIZEM CD180 MG PO; CLONIDINE HCL0.1 MG PO; LASIX20 MG PO; LOSARTAN POTAS100 MG PO; MELATONIN3 MG PO; NITROFURANTOIN100 MG PO; NOVOLIN N100 UNIT/1 SUBD; PANTOPRAZOLE SO40 MG PO; PIROXICAM10 MG PO; SPIRIVA18 MCG INH; TOPROL XL50 MG PO; VITAMIN D1000 UNI1 PO
[2017-07-01] MEDS ORDERED: SODIUM CHLORIDE 0.9% 1000ML 1,000 ML IV STA (16:58)
--- OUTSIDE RECORDS SUMMARY | 2017-07-01 17:00 | XMS REPORT | Continuity of Care Document ---
Author Author [facility] Organization [facility] Address [address] [place] [address] Phone Unavailable Care Team Providers Care Archer[employer] Hay Sorter Name Role Phone ERNST BRADEN M.D. PCP Insurance Providers Guarantor Robyn Holley Address [address] [place] [address] Email PT DECLINED Payer [facility] Policy Number [id number] Subscriber's Name Robyn Holley Relationship 18 Self / Same As Patient Effective Date 17 Payer Medicare A & B Policy Number [id number] Subscriber's Name Robyn Holley Relationship 18 Self / Same As Patient Effective Date 96 Advance Directives Directive Response Recorded Date/Time Does the patient have an advance directive? No 05/25/17 10:14pm If yes, is advance directive on file with [facility]? No 05/25/17 1:16pm If not on file with [facility] will patient provide a copy? No 05/25/17 1:16pm Do you have a Directive to Physician? No 05/25/17 1:16pm Do you have a Medical Power of Gaming Associate? No 05/25/17 1:16pm Do you have an out of hospital Do Not Resuscitate Order? No 05/25/17 1:16pm Do you have any special needs we should be aware of? No 05/25/17 1:16pm Do you have a support person here with you today? Yes 05/25/17 1:25pm Did patient receive Notice of Privacy Practices? Yes 05/25/17 1:25pm Did patient receive patient rights and responsibilities? Yes 05/25/17 1:25pm Problems No problem information available. Medications Current Home Medications Medication Dose Units Route Directions Days Qty Instructions Start Date Acetaminophen 325 Mg Tablet 325 Mg Oral Every 6 Hours 5 Days Ascorbic Acid 500 Mg Tablet 500 Mg Oral Daily 30 Tab Atorvastatin Calcium 20 Mg Tablet 20 Mg Oral Bedtime 30 Tab Cholecalciferol (Vitamin D3) (Vitamin D) 1,000 Unit Tablet 50,000 Unit Oral Daily 30 Tab Clonidine Hcl 0.1 Mg Tablet 1 Tab Oral Twice A Day as needed for High Blood Pressure 60 Tab Diltiazem Hcl (Cardizem Cd) 180 Mg Cap.er.24h 240 Mg Oral Daily Fluticasone/Salmeterol (Advair 250-50 Diskus) 1 Each Disk.w.dev Twice A Day Losartan Potassium 100 Mg Tablet 100 Mg Oral Daily Melatonin 3 Mg Tablet 3 Mg Oral Daily as needed for Sleep Metoprolol Succinate (Toprol Xl) 50 Mg Tab.er.24h 50 Mg Oral Daily 30 Tab Nitrofurantoin Macrocrystal (Nitrofurantoin) 100 Mg Capsule 50 Mg Oral Every 6 Hours 3 Days Nph, Human Insulin Isophane (Novolin N) 100 Unit/1 Ml Vial 5 Units Subdermal Daily Pantoprazole Sodium (Protonix) 40 Mg Tablet.dr 40 Mg Oral Tiotropium [place] (Spiriva) 18 Mcg Cap.w.dev 18 Mcg Inhalation Past Home Medications Medication Directions Ordered Status Furosemide (Lasix) 20 Mg Tablet, 20 Mg Oral Daily Discontinued Piroxicam 10 Mg Capsule, 10 Oral Daily Discontinued Social History Social History Problem Response Recorded Date/Time Onset Date Status Hx Psychiatric Problems No 05/25/2017 10:14pm Not Applicable Not Applicable Hx Eating Disorder No 05/25/2017 10:14pm Not Applicable Not Applicable Hx Substance Use Disorder No 05/25/2017 10:14pm Not Applicable Not Applicable Hx Depression No 05/25/2017 10:14pm Not Applicable Not Applicable Hx Alcohol Use No 05/25/2017 10:14pm Not Applicable Not Applicable Hx Substance Use Treatment No 05/25/2017 10:14pm Not Applicable Not Applicable Hx Physical Abuse No 05/25/2017 10:14pm Not Applicable Not Applicable Smoking Status Start Date Stop Date Never Smoker Hospital Discharge Instructions No hospital discharge instruction information available. Plan of Care Discharge Date 05/28/17 12:33pm Disposition TRANSFER RESIDENTIAL Instructions/Education Provided Congestive Heart Failure Prescriptions See Medication Section Functional Status Query Response Date Recorded Assistive Devices Rolling Walker May 25, 2017 10:23pm Ambulation Ability 1 person assist May 25, 2017 10:23pm Toileting Ability Total Assistance May 25, 2017 10:23pm Allergies, Adverse Reactions, Alerts Allergen Type Severity Reaction Status Last Updated Penicillin Allergy Intermediate Active 05/25/17 Sulfa (Sulfonamide Antibiotics) Allergy Intermediate Active 05/25/17 Codeine Allergy Intermediate Active 05/25/17 Cephalexin Allergy Intermediate Active 05/25/17 Immunizations No immunization information available. Vital Signs Acute Vital Signs Vital Response Date/Time Temperature (Fahrenheit) 98.5 degrees F (97.6 - 99.5) 05/28/2017 11:53am Pulse Pulse Rate (adult) 67 bpm (60 - 90) 05/28/2017 11:53am Respiratory Rate 16 bpm (12 - 24) 05/28/2017 11:53am Blood Pressure 146/68 mm Hg 05/28/2017 11:53am Height 5 ft 3 in 05/25/2017 10:14pm Weight 156.56 lb 05/27/2017 11:50pm Body Mass Index 27.7 kg/m^2 05/27/2017 11:50pm Results Laboratory Results Test Name Result Units Flags Reference Collection Date/Time Result Date/ Time Comments White Blood Count 13.20 x10e3/uL H 4.8-10.8 05/27/2017 6:25am 2017 6:55am Red Blood Count 4.62 x10e6/uL 3.6-5.1 05/27/2017 6:25am 05/27/2017 6: 55am Hemoglobin 13.0 g/dL 12.0-16.0 05/27/2017 6:05/27/2017 6:55am Hematocrit 40.2 % 34.2-44.1 05/27/2017 6:05/27/2017 6:55am Mean Corpuscular Volume 87.0 fL 81-99 05/27/2017 6:05/27/2017 6: 55am Mean Corpuscular Hemoglobin 28.1 pg 28-32 05/27/2017 6:05/27/2017 6:55am Mean Corpuscular Hemoglobin Concent 32.3 g/dL 31-35 05/27/2017 6:05/27/2017 6:55am Red Cell Distribution Width 16.8 % H 11.7-14.4 05/27/2017 6:2017 6:55am Platelet Count 306 x10e3/uL 140-360 05/27/2017 6:05/27/2017 6: 55am Neutrophils (%) (Auto) 80.1 % H 38.7-80.0 05/27/2017 6:05/27/2017 6 :55am Lymphocytes (%) (Auto) 7.6 % L 18.0-39.1 05/27/2017 6:05/27/2017 6: 55am Monocytes (%) (Auto) 7.0 % 4.4-11.3 05/27/2017 6:05/27/2017 6: 55am Eosinophils (%) (Auto) 2.0 % 0.0-6.0 05/27/2017 6:05/27/2017 6: 55am Basophils (%) (Auto) 1.1 % H 0.0-1.0 05/27/2017 6:05/27/2017 6: 55am IM GRANULOCYTES % 2.2 % H 0.0-1.0 05/27/2017 6:05/27/2017 6:55am Neutrophils # (Auto) 10.6 H 2.1-6.9 05/27/2017 6:05/27/2017 6: 55am Lymphocytes # (Auto) 1.0 1.0-3.2 05/27/2017 6:05/27/2017 6:55am Monocytes # (Auto) 0.9 H 0.2-0.8 05/27/2017 6:25am 05/27/2017 6:55am Eosinophils # (Auto) 0.3 0.0-0.4 05/27/2017 6:25am 05/27/2017 6:55am Basophils # (Auto) 0.1 0.0-0.1 05/27/2017 6:25am 05/27/2017 6:55am Absolute Immature Granulocyte (auto 0.29 x10e3/uL H 0-0.1 05/27/2017 6: 25am 05/27/2017 6:55am Differential Total Cells Counted 100 05/27/2017 6:am 05/27/2017 8 :16am Neutrophils % (Manual) 88 % H 40-74 05/27/2017 6:25am 05/27/2017 8:16am Band Neutrophils % 1 % 05/26/2017 6:15am 05/26/2017 8:09am Lymphocytes % (Manual) 4 % L 19-48 05/27/2017 6:25am 05/27/2017 8:16am Monocytes % (Manual) 6 % 3.4-9.0 05/27/2017 6:25am 05/27/2017 8:16am Eosinophils % (Manual) 1 % 0-7 05/27/2017 6:25am 05/27/2017 8:16am Basophils % (Manual) 1 % 0-1.5 05/27/2017 6:25am 05/27/2017 8:16am Platelet Estimate ADEQUATE 05/27/2017 6:am 05/27/2017 8:16am Platelet Morphology Comment NORMAL 05/27/2017 6:25am 05/27/2017 8: 16am Anisocytosis SLIGHT 05/27/2017 6:25am 05/27/2017 8:16am Red Cell Morphology Comment NORMAL 05/27/2017 6:25am 05/27/2017 8: 16am Prothrombin Time 13.2 seconds 11.9-14.5 05/25/2017 12:09pm 05/25/2017 1 :08pm Prothromb Time International Ratio 1.08 05/25/2017 12:09pm 2017 1:08pm Oral Anticoagulant Therapy INR Values: 1. Low Intensity Therapy 1.5 - 2.0 2. Moderate Intensity Therapy 2.0 - 3.0 3. High Intensity Therapy(1) 2.5 - 3.5 4. High Intensity Therapy(2) 3.0 - 4.0 5. Panic Value INR > 5.0 Activated Partial Thromboplast Time 21.2 seconds L 23.8-35.5 05/25/2017 12:09pm 05/25/2017 1:08pm Urine Color YELLOW YELLOW 05/25/2017 3:30pm 05/25/2017 3:59pm Urine Clarity HAZY CLEAR 05/25/2017 3:30pm 05/25/2017 3:59pm Urine Specific [place] 1.015 1.010-1.025 05/25/2017 3:30pm 2017 3:59pm Urine pH 6 5 - 7 05/25/2017 3:30pm 05/25/2017 3:59pm Urine Leukocyte Esterase 2+ H NEGATIVE 05/25/2017 3:30pm 05/25/2017 3: 59pm Urine Nitrite POSITIVE H NEGATIVE 05/25/2017 3:30pm 05/25/2017 3:59pm Urine Protein 2+ H NEGATIVE 05/25/2017 3:30pm 05/25/2017 3:59pm Urine Glucose (UA) NEGATIVE NEGATIVE 05/25/2017 3:30pm 05/25/2017 3: 59pm Urine Ketones NEGATIVE NEGATIVE 05/25/2017 3:30pm 05/25/2017 3:59pm Urine Urobilinogen 0.2 mg/dL 0.2 - 1 05/25/2017 3:30pm 05/25/2017 3: 59pm Urine Bilirubin NEGATIVE NEGATIVE 05/25/2017 3:30pm 05/25/2017 3: 59pm Urine Blood 3+ H NEGATIVE 05/25/2017 3:30pm 05/25/2017 3:59pm Urine WBC >50 /HPF H 0-5 05/25/2017 3:30pm 05/25/2017 4:10pm Urine RBC 11-20 /HPF H 0-5 05/25/2017 3:30pm 05/25/2017 4:10pm Urine Bacteria MANY /HPF H NONE 05/25/2017 3:30pm 05/25/2017 4:10pm Urine Epithelial Cells RARE /LPF NONE 05/25/2017 3:30pm 05/25/2017 4: 10pm Sodium Level 140 mmol/L 136-145 05/27/2017 6:25am 05/27/2017 7:27am Potassium Level 4.3 mmol/L 3.5-5.1 05/27/2017 6:25am 05/27/2017 7:27am Chloride Level 107 mmol/L 98-107 05/27/2017 6:25am 05/27/2017 7:27am Carbon Dioxide Level 27 mmol/L 22-29 05/27/2017 6:25am 05/27/2017 7: 27am Anion Gap 10.3 mmol/L 8-16 05/27/2017 6:25am 05/27/2017 7:27am Blood Urea Nitrogen 23 mg/dL 7-05/27/2017 6:25am 05/27/2017 7:27am Creatinine 0.87 mg/dL 0.57-1.11 05/27/2017 6:25am 05/27/2017 7:27am BUN/Creatinine Ratio 26 H 6-05/27/2017 6:25am 05/27/2017 7:27am Estimat Glomerular Filtration Rate > 60 ML/MIN 60- 05/27/2017 6:25am 7:27am Ranges were taken from the National Kidney Disease Education Program and the National Kid[employer] literature. Reference ranges: 60 or greater: Normal 16-59 (for 3 consecutive months): Chronic kidney disease 15 or less: Kidney failure Glucose Level 157 mg/dL H 74-118 05/27/2017 6:25am 05/27/2017 7:27am Calcium Level 10.0 mg/dL 8.4-10.2 05/27/2017 6:25am 05/27/2017 7:27am Bedside Glucose 195 mg/dL H 70-120 05/28/2017 10:56am 05/28/2017 11: 38am Meter ID: [id number] Magnesium Level 1.0 MG/DL *L 1.3-2.1 05/25/2017 12:09pm 05/25/2017 1: 20pm Results called to ELLA CHAPMAN RN at 1316 on 05/25/17 by Zbigniew Anton. RB OK. Total Bilirubin 0.4 mg/dL 0.2-1.2 05/25/2017 12:09pm 05/25/2017 1:20pm Aspartate Amino Transf (AST/SGOT) 14 IU/L 5-34 05/25/2017 12:09pm 05/25 1:20pm Alanine Aminotransferase (ALT/SGPT) 12 IU/L 0-55 05/25/2017 12:09pm 1:20pm Total Protein 6.7 g/dL 6.5-8.1 05/25/2017 12:09pm 05/25/2017 1:20pm Albumin 3.1 g/dL L 3.5-5.0 05/25/2017 12:09pm 05/25/2017 1:20pm Globulin 3.6 g/dL H 2.3-3.5 05/25/2017 12:09pm 05/25/2017 1:20pm Albumin/Globulin Ratio 0.9 0.8-2.0 05/25/2017 12:09pm 05/25/2017 1: 20pm Alkaline Phosphatase 83 IU/L 40-150 05/25/2017 12:09pm 05/25/2017 1: 20pm Creatine Kinase 29 IU/L 29-168 05/26/2017 6:15am 05/26/2017 6:52am Creatine Kinase MB 2.50 ng/mL 0-5.0 05/26/2017 6:15am 05/26/2017 7: 27am Troponin I 0.025 ng/mL 0-0.300 05/26/2017 6:15am 05/26/2017 7:27am Microbiology Results Procedure Source Organism/Result Collection Date/Time Result Date/Time Result Status Urine Culture Urine,Random ESCHERICHIA COLI 05/25/2017 3:30pm 05/27/2017 6 :46am Final Blood Culture Blood NO GROWTH AFTER 24 HOURS 05/26/2017 6:50pm 05/27/2017 7:01pm Preliminary Procedures Procedure Status Date Provider(s) Computed tomography of brain without radiopaque contrast Active 05/25/17 KERRY VELASQUEZ FRAME NAILER Computed tomography of cervical spine without contrast Active 05/25/17 KERRY VELASQUEZ FRAME NAILER X-ray of chest, single view Active 05/25/17 KERRY VELASQUEZ FRAME NAILER Encounters Encounter Location Arrival/Admit Date Discharge/Depart Date Attending Provider Discharged Inpatient [facility] 05/26/17 11:58am 12:33pm CHIDI BIRMINGHAM MD
--- OUTSIDE RECORDS SUMMARY | 2017-07-01 17:00 | XMS REPORT | Clinical Summary ---
Author Author [facility] Organization [facility] Address Unknown Phone Unavailable Care Team Providers Care Server Support Technician Name Role Phone Sommer Jesus MD PCP [...] ULTRA-FINE 0.5 mL 31 17 gauge x 07/22 syringe metoprolol succinate XL TAKE 1 TABLET [...] (two) times a day. 16 18 ued ONETOUCH ULTRA TEST strip TEST BLOOD [...] mouth once 16 17 ued tablet daily. clonIDINE (CATAPRES) 0.1 TAKE 1 TABLET BY [...] (TWO) TIMES A DAY. 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 Had EGD and colonoscopy when admitted [facility] last summer and had recurrent admission in [...] Outreach 03/27/2017 Documentation Quality Elijah Copeland 03/22/2017 [facility] Neurosurgery Ganesh Valero MD - Encounter [place] [...] mellitus with insulin therapy (Primary Dx) 10/31/2016 [facility] Procedural Cardiology Darrell Mcbride MD SSS (sick sinus syndrome) Encounter 10/31/2016 Ancillary Procedural Cardiology Darrell Mcbride MD SSS ( sick sinus syndrome) Orders 10/27/2016 Refill Internal Christopher Figueroa III, MD 10/13/2016 Refill Internal Christopher Figueroa III, MD 09/25/2016 Refill Internal Christopher Figueroa III, MD 09/13/2016 Refill Internal Christpoher Figueroa III, MD 08/08/2016 Refill Internal Christopher Figueroa III, MD 08/07/2016 Refill Internal Christopher Figueroa III, MD 07/09/2016 Office Visit Orthopedic Surgery Ze Jones MD Left shoulder pain, unspecified chronicity (Primary Dx); Osteoarthritis of left glenohumeral joint 07/02/2016 Ancillary Procedural Cardiology Darrell Mcbride MD SSS ( sick sinus syndrome) Orders 06/30/2016 Hospital Procedural Cardiology Darrell Mcbride MD SSS (sick sinus syndrome) Encounter after 06/30/2016 Family History Medical History Relation Name Comments [...] Taken Blood Pressure 134/66 03/28/2017 12:33 PM PRACTICE NURSE Pulse 62 03/28/2017 1:06 PM PRACTICE NURSE Temperature 36.6 C (97.8 F) 03/28/2017 12:33 PM PRACTICE NURSE Respiratory Rate 16 03/28/2017 1:06 PM PRACTICE NURSE Oxygen Saturation 96% 03/28/2017 1:00 PM PRACTICE NURSE Inhaled Oxygen - - Concentration Weight 77.6 kg (171 lb) 03/22/2017 10:34 AM PRACTICE NURSE Height 167.6 cm (5' 6") 03/22/2017 10:34 AM PRACTICE NURSE Body Mass Index 27.6 03/22/2017 10:34 AM PRACTICE NURSE Plan of Treatment Health Maintenance Due Date Last Done Comments FOOT EXAM 1941 OPHTHALMOLOGY EXAM 1941 SHINGRIX VACCINE (#1) 1981 ZOSTER VACCINE 1991 PNEUMOCOCCAL 02/04/1996 POLYSACCHARIDE VACCINE AGE 65 AND OVER PNEUMOCOCCAL-13 02/04/1996 INFLUENZA VACCINE 10/07/2017 Procedures Procedure Name Priority Date/Time Associated Diagnosis Comments CV PACEMAKER PROGRAMMING Routine 03/24/2017 DL 10:40 AM PRACTICE NURSE ECHOCARDIOGRAM 2D Routine 03/23/2017 Results for this COMPLETE W MMODE SPECTRAL 2:43 PM PRACTICE NURSE procedure are in the COLOR DOPPLER (22926) results section. NC CRITICAL CARE, E/M Routine 03/22/2017 Results for this 30-74 MINUTES 7:53 PM PRACTICE NURSE procedure are in the results section. CV PACEMAKER DEFIB REMOTE Routine 03/05/2017 Heart failure, TECH SERVICE 9:53 AM PRACTICE NURSE unspecified heart failure chronicity, unspecified heart failure type Sick sinus syndrome NC ARTHROCENTESIS Routine 12/22/2016 Osteoarthritis of left Results for this ASPIR&/INJ MAJOR JT/BURSA 2:49 PM CDT glenohumeral joint procedure are in the W/O US results section. CV PACEMAKER DEFIB REMOTE Routine 10/31/2016 SSS (sick sinus syndrome) TECH SERVICE 1:04 PM CDT NC ARTHROCENTESIS Routine 07/09/2016 Left shoulder pain, Results for this ASPIR&/INJ MAJOR JT/BURSA 1:59 PM CDT unspecified chronicity procedure are in the W/O US Osteoarthritis of left results section. glenohumeral joint CV PACEMAKER DEFIB REMOTE Routine 07/02/2016 SSS (sick sinus syndrome) TECH SERVICE 2:36 PM CDT after 06/30/2016 Results * POC glucose (03/28/2017 12:36 PM) Only the most recent of 27 results within the time period is included. Component Value Ref Range POC glucose 123 (H) 65 - 99 mg/dL Comment: [facility] Notified RN Meter ID: [id number] Conservation Coordinator: Harry Ochoa Specimen Performing Laboratory [facility] DEPARTMENT OF PATHOLOGY AND GENOMIC MEDICINE [address] [place] [address] * Creatine kinase, total (CPK) (03/26/2017 4:20 AM) Component Value Ref Range Creatine kinase 98 26 - 192 U/L Specimen Performing Laboratory Plasma specimen [facility] DEPARTMENT OF PATHOLOGY AND GENOMIC MEDICINE [address] [place] [address] * CT Head Wo Contrast (03/26/2017 1:08 AM) Only the most recent of 4 results within the time period is included. Specimen Performing Laboratory [address] HEAD WO CONTRAST CLINICAL INDICATION:fu [...] extra-axial hemorrhage overlying the right parieto-occipital region. [facility]-[id number] Procedure Note Interface, Radiology Results Incoming - 03/26/2017 2:[address] HEAD WO CONTRAST CLINICAL INDICATION: fu [...] extra-axial hemorrhage overlying the right parieto-occipital region. [facility]-[id number] * XR Chest 1 Vw Portable (03/25/2017 2:45 PM) Only the most recent of 2 results within the time period is included. Specimen Performing Laboratory [facility] [address] [place] [address] Narrative Examination: XR CHEST 1 VW PORTABLE [...] osseous pathology. 4. Appearance is otherwise similar. [facility]-[id number] Procedure Note Interface, Radiology Results Incoming - 03/25/2017 3:24 PM PRACTICE NURSE Examination: XR CHEST 1 VW PORTABLE Clinical [...] osseous pathology. 4. Appearance is otherwise similar. [facility]-[id number] * Smear review (03/25/2017 6:40 AM) Only the most recent of 3 results within the time period is included. Component Value Ref Range Platelet slide review Audelia adequate Anisocytosis Moderate Schistocytes Occasional Ovalocytes Moderate Specimen Performing Laboratory [facility] DEPARTMENT OF PATHOLOGY AND GENOMIC MEDICINE [address] [place] [address] * CBC with platelet and differential (03/25/2017 [...] (promyelocytes, myelocytes, metamyelocytes) Specimen Performing Laboratory Blood [facility] DEPARTMENT OF PATHOLOGY AND GENOMIC MEDICINE [address] [place] [address] * Estimated GFR (03/25/2017 4:00 AM) Only [...] and Americans. Specimen Performing Laboratory Plasma specimen [facility] DEPARTMENT OF PATHOLOGY AND [facility] MEDICINE [address] [place] [address] * Basic metabolic panel (03/25/2017 4:00 AM) [...] 10.2 mg/dL Specimen Performing Laboratory Plasma specimen [facility] DEPARTMENT OF PATHOLOGY AND GENOMIC MEDICINE [address] [place] [address] * Gram stain (03/24/2017 12:50 PM) Component Value Ref Range Gram stain result Rare WBC's No organisms seen Comment: Specimen Information Specimen Source: Urine Specimen Site: See UA Specimen Performing Laboratory Urine [facility] DEPARTMENT OF PATHOLOGY AND [facility] MEDICINE [address] [place] [address] * Urine culture (03/24/2017 12:50 PM) Component Value Ref Range Urine culture isolate Mixed Gram positive neftaly 10-5 cfu/ml (A) Comment: Specimen Information Specimen Source: Urine Specimen Site: See UA Specimen Performing Laboratory Urine [facility] DEPARTMENT OF PATHOLOGY AND [facility] MEDICINE [address] [place] [address] * Urinalysis screen and microscopy, with reflex [...] None seen UA Specimen Performing Laboratory Urine [facility] DEPARTMENT OF PATHOLOGY AND GENOMIC MEDICINE [address] [place] [address] * Cv pacemaker defib or ilr interrogation (03/24/2017 10:40 AM) Specimen Performing Laboratory [facility] [address] [place] [address] * Hemoglobin A1c (03/24/2017 4:40 AM) Only [...] with type 1 diabetes. Specimen Performing Laboratory [facility] DEPARTMENT OF PATHOLOGY AND GENOMIC MEDICINE [address] [place] [address] * Ferritin level (03/24/2017 4:00 AM) Component Value Ref Range Ferritin level 240 (H) 13 - 150 ng/mL Specimen Performing Laboratory Plasma specimen [facility] DEPARTMENT OF PATHOLOGY AND GENOMIC MEDICINE [address] [place] [address] * XR Knee 3 Vw Right (03/23/2017 9:10 PM) Specimen Performing Laboratory [facility] [address] [place] [address] Narrative XR KNEE 3 VW RIGHT CLINICAL INDICATION:pain sp fall COMPARISON:None. IMPRESSION: There is no acute fracture or dislocation. There is no knee joint effusion. The bones are demineralized. There is mild osteoarthrosis of the knee, worst in the medial femorotibial compartment. [facility]-[id number] Procedure Note Interface, Radiology Results Incoming - 03/23/2017 9:34 PM PRACTICE NURSE XR KNEE 3 VW RIGHT CLINICAL INDICATION: pain sp fall COMPARISON: None. IMPRESSION: There is no acute fracture or dislocation. There is no knee joint effusion. The bones are demineralized. There is mild osteoarthrosis of the knee, worst in the medial femorotibial compartment. [facility]-[id number] * XR Knee 3 Vw Left (03/23/2017 9:10 PM) Specimen Performing Laboratory [facility] [address] [place] [address] Narrative XR KNEE 3 VW LEFT CLINICAL INDICATION:pain sp fall COMPARISON:None. IMPRESSION: There is no acute fracture or dislocation. There is no knee joint effusion. The bones are demineralized. There is moderate osteoarthrosis of the knee, worst in the medial femorotibial compartment. [facility]-[id number] Procedure Note Interface, Radiology Results Incoming - 03/23/2017 9:33 PM PRACTICE NURSE XR KNEE 3 VW LEFT CLINICAL INDICATION: pain sp fall COMPARISON: None. IMPRESSION: There is no acute fracture or dislocation. There is no knee joint effusion. The bones are demineralized. There is moderate osteoarthrosis of the knee, worst in the medial femorotibial compartment. [facility]-[id number] * Echocardiogram complete w contrast and 3D if needed (03/23/2017 2:43 PM) Specimen Performing Laboratory [facility] [address] [place] [address] Narrative Echocardiography Report [address]Name:Laureano HOLLEY.ID:[id number] .Date: 03/23/2017 Refer.MD:GANESH VALERO MD Exam Time: 2:09:00 PMStudy Type:Routine Echo Height:64inWeight:171lb BSA: 1.83 m2 DOBAge:1929,87Y Sex: FEMALEBP: 156/76 Sonogrphr: Hyacinth Garcia RDCS, RVSPat. Stat.:Inpatient Study Status:Final Echo Event ID:[id number] Order ID:[id number] Reason for Study:Syncope without cardiac evidence History [...] RAPof 5 mmHg. MEASUREMENTS: 2D Parasternal [place] Ao An2.2 cmLVPWd 1.7 cm LVOT 2 [...] LVOT Area3.1 cm2 LVOT SV 67.8 ml MWREoaHpy657.9 cm/sHR 59.9 bpm LVOTpkPG 6.7 mmHgLVOT CO 4.1 l/min LVOTmnPG 3.5 mmHgLVOT CI 2.2 l/m/m2 LVOT TVI21.6 cm Signed 03/23/2017 07:23 PM Koki Viveros M.D. Procedure Note Interface, Radiology Results In - 03/23/2017 7:24 PM [facility] Echocardiography Report [address] [place] [address] Pat.Name: ESTRELLA HOLLEY.ID: [id number] .Date: 03/23/2017 Refer.MD: GANESH VALERO MD Exam Time: 2:09:00 PM Study Type:Routine Echo Height: 64in Weight: 171lb BSA: 1.83 m2 Age: 12 1930,87Y Sex: FEMALE BP: 156/76 Sonogrphr: Hyacinth Garcia RDCS, RVSPat. Stat.:Inpatient Study Status:Final Echo Event ID:[id number] Order ID: [id number] Reason for Study:Syncope without cardiac evidence History [...] of 5 mmHg. MEASUREMENTS: 2D Parasternal [place] Ao An 2.2 cm LVPWd 1.7 cm [...] Contrast (03/23/2017 1:52 PM) Spec[place] [address] Narrative EXAMINATION: CT CERVICAL SPINE WO CONTRAST [...] to severe right C5-6 spondylotic foraminal adenosis. [id number] Procedure Note Hm Interface, Radiology Results Incoming - 03/23/2017 2:08 PM PRACTICE NURSE EXAMINATION: CT CERVICAL SPINE WO CONTRAST CLINICAL [...] to severe right C5-6 spondylotic foraminal adenosis. [id number] * Pv carotid duplex (03/23/2017 10:40 AM) Specimen Performing Laboratory [facility] [address] [place] [address] Narrative Vascular Ultrasound Laboratory Carotid Artery Duplex Report [address] [place] [address] For quality improvement specialist purposes, the categorization of the degree of the stenosis of this exam is based on criteria described in the IAC carotid stenosis grading white paper( www.intersocietal.org/Vascular) and Abbi Holt., Rodrigo Perera., et al. Carotid artery stenosis: youngblood-scale and Doppler US diagnosis--Society of Radiologists in Ultrasound Consensus Conference. Radiology. 2003 Nov; 229(2):340-6. Pat.Name:HEMALATHA HOLLEYcorie.ID:[id number] .Date: 03/23/2017 Refer.MD:NICOLASA AYALA MD Exam Time: 10:14:00 AM Study Type:Carotid DOBAge:1930,87YSex: FEMALE Sonogrphr: Lynn Stout RVTPat. Stat.:Inpatient Room:[facility] TapeVol: [place], CPT - 4: 75810 Echo Event ID:[id number] Order ID:[id number] Reason for Study:An episode of syncope and [...] Left ICA Mid ICA Mid PSV 72.7 cm/Issi Mid EDV 20.8 cm/s Left ICA Prox [...] Radiology Results In - 03/23/2017 12:27 PM [facility] Vascular Ultrasound Laboratory Carotid Artery Duplex Report [address] [place] [address] For quality improvement specialist purposes, the categorization of the degree of the stenosis of this exam is based on criteria described in the IAC carotid stenosis grading white paper( www.intersocietal.org/Vascular) and Abbi Holt., Javier Perera, et al. Carotid artery stenosis: youngblood-scale and Doppler US diagnosis--Society of Radiologists in Ultrasound Consensus Conference. Radiology. 2003 Jan; 229(2):340-6. Pat.Name: ESTRELLA HOLLEY.ID: [id number] .Date: 03/23/2017 Refer.MD: NICOLASA AYALA MD Exam Time: 10:14:00 AM Study Type:Carotid Age: 12 1930,87Y Sex: FEMALE Sonogrphr: Lynn Stout RVT Pat. Stat.:Inpatient Room: 39A Tape Vol: [place], CPT - 4: 05682 Echo Event ID:[id number] Order ID: [id number] Reason for Study:An episode of syncope and [...] myocardial injury. Specimen Performing Laboratory Plasma specimen [facility] DEPARTMENT OF PATHOLOGY AND [facility] MEDICINE [address] [place] [address] * Partial thromboplastin time, activated (03/22/2017 11:56 PM) Component Value Ref Range PTT 25.1 23.0 - 36.0 sec Comment: PTT therapeutic range for unfractionated heparin is 61.0-112.0 seconds which corresponds to Anti-Xa 0.3-0.7 U/ml. Specimen Performing Laboratory Blood [facility] [place] [address] * Prothrombin time with INR (03/22/2017 11:56 PM) Component Value Ref Range Prothrombin time 13.8 12.0 - 15.0 sec INR 1.0 Comment: The International Normalized Ratio (INR) is a therapeutic monitoring tool for patients who are stable on oral anticoagulant therapy. An INR of 2.0-3.0 is suggested for deep vein thrombosis/pulmonary embolism. Specimen Performing Laboratory Blood [facility] DEPARTMENT OF PATHOLOGY AND [place] [id number] * Type and screen (03/22/2017 11:56 PM) Only the most recent of 3 results within the time period is included. Component Value Ref Range ABO grouping B Rh type POS Antibody screen (gel) NEG Specimen Performing Laboratory Blood [facility] DEPARTMENT OF PATHOLOGY AND [address] [address] * B natriuretic peptide (03/22/2017 11:56 PM) Component Value Ref Range BNP 184 (H) 0 - 100 pg/mL Specimen Performing Laboratory [facility] DEPARTMENT OF PATHOLOGY AND [address] [address] * Comprehensive metabolic panel (03/22/2017 11:56 PM) [...] 5.9 (L) 6.3 - 8.3 g/dL Comment: [place] 4.6-7.0 g/dL 1 week 4.4-7.6 g/dL 7 [...] 1.2 mg/dL Specimen Performing Laboratory Plasma specimen [facility] DEPARTMENT OF PATHOLOGY AND GENOMIC MEDICINE [address] [place] [address] * ECG ED Preliminary Interpretation - NOT AN ORDER (03/22/2017 7:53 PM) Narrative Lowell Orozco MD 03/22/20177:53 PM ECG ED Preliminary Interpretation - Not an Order Performed by: LOWELL OROZCO Authorized by: LOWELL OROZCO ECG reviewed by ED Physician in the absence of a field crop harvest 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: yes Rate: ECG rate:92 ECG rate assessment: normal Rhythm: Rhythm: paced Pacing: Type of pacing:Ventricular Ectopy: Ectopy: none QRS: QRS axis:Normal QRS intervals:Normal Conduction: Conduction: normal ST segments: ST segments:Normal T waves: T waves: normal * CRITICAL CARE (03/22/2017 7:53 PM) Narrative Lowell Orozco MD 03/22/20177:53 PM Critical Care Performed by: LOWELL OROZCO Authorized by: LOWELL OROZCO Critical care provider statement: Critical care time (minutes):45 Critical care time was exclusive of:Separately billable procedures and treating other patients Critical care was necessary to treat or prevent imminent or life-threatening deterioration of the following conditions:SAWMILL SUPERVISOR failure or compromise and trauma Critical care [...] Range Ventricular rate 80 Atrial rate 80 NC interval 166 QRSD interval 150 QT interval 388 QTC interval 447 P axis 1 51 QRS axis 1 -67 T wave axis 106 EKG impression Atrial-sensed ventricular-paced rhythm-Abnormal ECG-In automated comparison with ECG of 08-MAY-2016 13:45,-Electronic ventricular pacemaker has replaced Wide QRS rhythm- Specimen Performing Laboratory [facility] [address] [place] [address] * Cv pacemaker defib or ilr interrogation (03/05/2017 9:53 AM) Specimen Performing Laboratory [facility] [address] [place] [address] * Transfuse RBC (01/23/2017 4:11 PM) Only the most recent of 6 results within the time period is included. * Prepare RBC, 2 Units (01/22/2017 2:32 PM) Only the most recent of 2 results within the time period is included. Component Value Ref Range Product name Red Blood Cells -1, Leukored Unit number [id number] Product code [id number] Dispense status Transfused Blood expiration date 20170226 Blood type code 7300 Blood type B POSITIVE Product name Red Blood Cells -1, Leukored Unit number [id number] Product code [id number] Dispense status Transfused Blood expiration date 20170226 Blood type code 7300 Blood type B POSITIVE Specimen Performing Laboratory [facility] DEPARTMENT OF PATHOLOGY AND GENOMIC MEDICINE [address] [place] [address] * Large Joint Arthrocentesis (12/22/2016 2:49 PM) Mohit Jones MD 12/22/20162:49 PM Large Joint Arthrocentesis Consent given by: patient Timeout: Immediately prior to procedure a time out was called to verify the correct patient, procedure, equipment, software support specialist and site/side marked as required [...] 1:04 PM) Specimen Performing Laboratory [facility] [address] [place] [address] * Large Joint Arthrocentesis (07/09/2016 1:59 PM) Mohit Jones MD 07/09/20161:59 PM Large Joint Arthrocentesis Consent given by: patient Timeout: Immediately prior to procedure a time out was called to verify the correct patient, procedure, equipment, software support specialist and site/side marked as required [...] 1:34 PM) Specimen Performing Laboratory [facility] [address] [place] [address] Narrative AP, scapular Y, and axillary views [...] 2:36 PM) Specimen Performing Laboratory [facility] [address] [place] [address] after 06/30/2016 Insurance Payer Benefit Subscriber ID Type Phone Address Plan / Group MEDICARE MEDICARE xxxxxxxxxx [place] PART A AND B AARP AARP xxxxxxxxxxx Commercial SUPPLEMENT
[2017-07-01 17:38] LABS: BASOPHILS # (AUTO) 0.1 (0.0-0.1); BASOPHILS % 0.7 % (0.0-1.0); EOSINOPHILS # (AUTO) 0.5 (0.0-0.4); EOSINOPHILS % 4.5 % (0.0-6.0); HEMATOCRIT 37.9 % (34.2-44.1); HEMOGLOBIN 12.7 g/dL (12.0-16.0); LYMPHOCYTES # (AUTO) 1.3 (1.0-3.2); LYMPHOCYTES % 12.2 % (18.0-39.1); MEAN CORPUSCULAR HEMOGLOBIN 29.7 pg (28-32); MEAN CORPUSCULAR HGB CONC 33.5 g/dL (31-35); MEAN CORPUSCULAR VOLUME 88.6 fL (81-99); MONOCYTES % 9.4 % (4.4-11.3); NEUTROPHILS # (AUTO) 7.7 (2.1-6.9); NEUTROPHILS % 72.3 % (38.7-80.0); PLATELET COUNT 210 x10e3/uL (140-360); RED BLOOD COUNT 4.28 x10e6/uL (3.6-5.1); RED CELL DISTRIBUTION WIDTH 14.4 % (11.7-14.4)
[2017-07-01 17:52] LABS: ALANINE AMINOTRANSFERASE 12 IU/L (0-55); ALBUMIN 3.1 g/dL (3.5-5.0); ALKALINE PHOSPHATASE 97 IU/L (40-150); ANION GAP 11.2 mmol/L (8-16); BLOOD UREA NITROGEN 23 mg/dL (7-26); BUN/CREATININE RATIO 32 (6-25); CALCIUM 11.9 mg/dL (8.4-10.2); CARBON DIOXIDE 28 mmol/L (22-29); CHLORIDE 107 mmol/L (98-107); CREATINE KINASE 23 IU/L (29-168); CREATININE, SERUM 0.72 mg/dL (0.57-1.11); EST GLOMERULAR FILTRATION RATE > 60 ML/MIN (60-); GLUCOSE 113 mg/dL (74-118); POTASSIUM 4.2 mmol/L (3.5-5.1); SODIUM 142 mmol/L (136-145)
[2017-07-01] MEDS ORDERED: VITAMIN C500 M1 PEG (18:01)
[2017-07-01] MEDS ORDERED: VITAMIN D1000 UNI1 PO (18:01)
[2017-07-01] MEDS ORDERED: LASIX20 MG PO (18:01)
[2017-07-01] MEDS ORDERED: COLACE100 MG PO (18:01)
[2017-07-01] MEDS ORDERED: PIROXICAM10 MG PO (18:01)
[2017-07-02] MEDS ORDERED: SODIUM CHLORIDE 0.9% 1000ML 1,000 ML ONE (00:08)
[2017-07-02] MEDS ORDERED: ACETAMINOPHEN 1000 MG/100 ML 100 ML IV ONE (00:08)
== END 2017-07-01 20:35 ==
LOC: ER 16:54
DX: E83.52 Hypercalcemia (principal)
CPT/HCPCS: 36415; 80053; 82550; 82553; 84484; 85025; 93005; 96360; 99283; J7030

== ENCOUNTER 2017-11-19 21:40 | Emergency (ER) | payer MEDICARE ==
[~2017-11-19] VITALS: Ht 160 cm; Wt 70.8 kg
[~2017-11-19 21:40] MED LIST changes: -ADVAIR 250-501 EACH; +ADVAIR 250-501 EACH INH; +COLACE100 MG PO; +VITAMIN C500 M1 PO
[2017-11-19] MEDS ORDERED: ACIDOPHILUS1 EAC1 PO (21:49)
[2017-11-19] MEDS ORDERED: ACETAMINOPHEN325 M1 PO (21:49)
[2017-11-19] MEDS ORDERED: BACTROBAN15 G1 TOP (21:53)
[2017-11-19] MEDS ORDERED: CLONIDINE HCL0.2 MG PO (21:53)
[2017-11-19] MEDS ORDERED: HUMULIN-R100 UNITS/ SQ (22:05)
[2017-11-19] MEDS ORDERED: NOVOLIN N100 UNIT/1 SQ (22:05)
[2017-11-19] MEDS ORDERED: MEGESTROL400 MG/10 PO (22:05)
[2017-11-19] MEDS ORDERED: METOPROLOL SUCC50 MG PO (22:05)
[2017-11-19] MEDS ORDERED: GLYCOLAX PO (22:05)
[2017-11-19] MEDS ORDERED: MAGNESIUM OXID400 MG PO (22:05)
[2017-11-19] MEDS ORDERED: LEVAQUIN500 MG PO (22:05)
[2017-11-19] MEDS ORDERED: duoneb INH ×2 (22:05)
[2017-11-19] MEDS ORDERED: VITAMIN D32000 UNIT PO (22:10)
[2017-11-19] MEDS ORDERED: PEPCID20 MG PO (22:10)
[2017-11-19] MEDS ORDERED: ZOFRAN ODT4 MG SL (22:10)
[2017-11-19] MEDS ORDERED: MIRTAZAPINE15 MG PO (22:10)
[2017-11-19] MEDS ORDERED: ACETAMINOPHEN 325 MG TAB PO ONE ×2 (22:15)
[2017-11-19] MEDS ORDERED: ACETAMINOPHEN 325 MG/10 ML UDC PO PRN (22:45)
--- NOTE | 2017-11-19 23:17 | Diagnostic Imaging Report ---
PELVIS AP 1-2 VIEWS HISTORY: Pelvic pain status post fall COMPARISON: None FINDINGS: Bones: Diffuse demineralization and bowel gas limits the evaluation of the bone. No displaced fracture. Osseous alignment is within normal limits. 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 Signed by: Dr. Chetan Mac M.D. on 11/19/2017 11:13 PM
--- NOTE | 2017-11-19 23:18 | Diagnostic Imaging Report ---
EXAMINATION: CHEST SINGLE (PORTABLE) INDICATION: Status post fall COMPARISON: None FINDINGS: TUBES and LINES: The pacemaker is intact. LUNGS: Lungs are not well inflated. There are bibasilar atelectasis. There is mild prominence of the central pulmonary vasculature, consistent with pulmonary venous congestion. PLEURA: No pleural effusion or pneumothorax. HEART AND MEDIASTINUM: Cardiac size is mildly enlarged. There are atherosclerotic calcifications within the aorta. BONES AND SOFT TISSUES: No acute osseous lesion. Degenerative joint disease of the left glenohumeral joint and postsurgical changes of the lateral left clavicle. Soft tissues are unremarkable. UPPER ABDOMEN: No free air under the diaphragm. IMPRESSION: No acute thoracic abnormality. Mild enlargement of the cardiac silhouette without decompensation Signed by: Dr. Chetan Mac M.D. on 11/19/2017 11:14 PM
--- NOTE | 2017-11-19 23:23 | Diagnostic Imaging Report ---
EXAMINATION: Head CT without contrast. HISTORY:Altered mental status, status post fall. COMPARISON:CT brain from 05/25/2017. TECHNIQUE: Multidetector axial images were obtained from the foramen magnum to the vertex without contrast. The images were reconstructed using brain and bone algorithms. Thin section brain images were reformatted into coronal and sagittal planes. Dose modulation, iterative reconstruction, and/or weight based adjustment of the mA/kV was utilized to reduce the radiation dose to as low as reasonably achievable. Intravenous contrast: None IMAGE QUALITY: Acceptable. FINDINGS: Skull/scalp: No lytic or blastic. lesions. No surgical changes. Parenchyma: Nonspecific bilateral frontoparietal confluent periventricular and patchy subcortical white matter hypodensity are likely related to small vessel ischemic changes. No acute hemorrhage, mass or acute major vascular territorial infarct. Arteries: No density suggestive of thrombosis. Atherosclerotic calcification in bilateral carotid siphon. Dural sinuses: No abnormal density suggestive of thrombosis. Ventricles: Moderate compensated dilatation due to volume loss. Extra-axial spaces: No abnormal density. Brain volume: Generalized age-related cerebral volume loss. Craniocervical junction: No mass, Chiari malformation, or basilar invagination. Sella: No mass. Paranasal/mastoid sinuses: Under pneumatization and partial sclerosis of bilateral mastoid air cells may be related to chronic inflammatory process. IMPRESSION: No acute intracranial abnormality. No change since CT brain from 05/25/2017. Moderate supratentorial white matter microvascular ischemic changes. Generalized age-related cerebral volume loss. Signed by: Dr. Denice Blackburn M.D. on 11/19/2017 11:19 PM
--- NOTE | 2017-11-19 23:31 | Diagnostic Imaging Report ---
History: Status post fall. Comparison studies: CT cervical spine from 05/25/2017. Technique: Axial images were obtained through the cervical region.. Coronal and sagittal images reconstructed from the axial data. Dose modulation, iterative reconstruction, and/or weight based adjustment of the mA/kV was utilized to reduce the radiation dose to as low as reasonably achievable. Intravenous contrast: None Findings: Fractures: None. Soft tissue injuries: None. Atlantoaxial articulation: Intact. Alignment: Loss of normal cervical lordosis is either positional or due to muscle spasm. No scoliosis. 2 mm grade 1 anterolisthesis at C3-C4 and C6-C7. Cervicomedullary junction: No abnormalities. The foramen magnum is patent. Soft tissues: No abnormalities. Vertebrae: No fractures, infection or neoplasm. Diffuse osseous demineralization. 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 C3-C4: Posterior disc osteophyte complex results in mild canal stenosis. Mild bilateral foraminal stenosis due to facet and uncovertebral arthrosis. C4-C5: Moderate degenerative disc disease. Posterior disc osteophyte complex without significant canal stenosis. Moderate bilateral foraminal stenosis due to facet and uncovertebral arthrosis. C5-colon moderate degenerative disc disease. Severe right foraminal stenosis due to facet and uncovertebral arthrosis. C6-C7: Moderate right foraminal stenosis due to facet and uncovertebral arthrosis.. IMPRESSION: 1. No acute cervical spine fracture. Loss of normal cervical lordosis is either positional or due to muscle spasm. 2. Ligament, spinal cord and or vascular abnormalities cannot be excluded on the basis of this examination. 3. Cervical spondylosis as detailed above. Signed by: Dr. Denice Blackburn M.D. on 11/19/2017 11:27 PM
[2017-11-19 23:57] VITALS: BP 118/60
== END 2017-11-20 00:12 | disposition home or self-care (01) ==
LOC: ER 21:40
DX: S00.83XA Contusion of other part of head, initial encounter (principal); W06.XXXA Fall from bed, initial encounter; Y93.84 Activity, sleeping; Y92.128 Other place in nursing home as the place of occurrence of the external cause; F03.90 Unspecified dementia, unspecified severity, without behavioral disturbance, psychotic disturbance, mood disturbance, and anxiety; I10 Essential (primary) hypertension; E11.9 Type 2 diabetes mellitus without complications; J44.9 Chronic obstructive pulmonary disease, unspecified; I50.9 Heart failure, unspecified; E78.5 Hyperlipidemia, unspecified; Z95.810 Presence of automatic (implantable) cardiac defibrillator
CPT/HCPCS: 70450; 71045; 72125; 72170; 99284